=== PATIENT | male | born 1945 | race Caucasian/White ===

== ENCOUNTER 2018-03-30 10:34 | Inpatient (IN) | payer MEDICARE, OTHER ==
[~2018-03-30] VITALS: Ht 182.9 cm; Wt 91.2 kg
[~2018-03-30 10:34] MED LIST: ACET325T12 PO; ALPR0.25 PO; AMLO2.5T2 PO; Buspirone Hcl PO; DOCU-123 PO; Donepezil Hcl PO; ESCI10TA10 PO; HYDR25TA9 PO; LEVO50TA PO; ONDA2VIA3; PANT40TA3 PO; POTA20TA91 PO; PRAV20TA PO; Trazodone Hcl PO
[2018-03-30 10:50] VITALS: BP 139/84
--- NOTE | 2018-03-30 11:14 | NUR ---
Admit Pt transported onto unit via wheelchair. No distress noted, no combative or threatening behaviors @ this time. Pt is able to follow simple commands. Alert and oriented to self. VS WNL, denies pain @ this time.
[2018-03-30] MEDS ORDERED: ATIVAN IM PRN (11:30)
[2018-03-30] MEDS ORDERED: HALDOL IM PRN (11:30)
[2018-03-30] MEDS ORDERED: ALPR0.5T6 PO (11:48)
[2018-03-30] MEDS ORDERED: ESCI20TA10 PO (11:48)
[2018-03-30] MEDS ORDERED: BUSP5TAB2 PO (11:48)
[2018-03-30] MEDS ORDERED: TRAZ50TA18 PO (11:48)
[2018-03-30] MEDS ORDERED: RISP0.5T24 PO (11:48)
--- NOTE | 2018-03-30 11:50 | NUR ---
VSEE Pt was seen by Dr. Rivera via telemed, new medication orders received @ this time, see EMAR.
[2018-03-30] MEDS ORDERED: ONDA4TAB10 PO (12:24)
[2018-03-30] MEDS ORDERED: CYAN10002 IJ (12:24)
[2018-03-30] MEDS ORDERED: MOME17SP (12:24)
[2018-03-30] MEDS ORDERED: DOCU-123 PO (12:24)
[2018-03-30] MEDS ORDERED: LOPE2CAP94 PO (12:24)
[2018-03-30] MEDS ORDERED: LORA10TA75 PO (12:24)
[2018-03-30] MEDS ORDERED: OMEG1CAP2 PO (12:24)
[2018-03-30] MEDS ORDERED: TYLENOL PO PRN (12:30)
--- NOTE | 2018-03-30 12:52 | PSYCH ---
DATE OF SERVICE: 03/30/2018 INITIAL PSYCHIATRIC ADMISSION NOTE DATE OF ADMISSION: 03/30/2018 DATE OF SERVICE: 03/30/2018 CHIEF COMPLAINT: The patient was brought from [facility] on [facility]. HISTORY OF PRESENT ILLNESS: Delia Reyes is a 73-year-old male with a history of Alzheimer's type dementia, bipolar disorder, generalized anxiety and insomnia. The patient has been followed by Dr. Snell and Stanislaw in the past via tele medicine over the past 2 years. The patient was admitted to the [facility] in 07/2014. He does struggle with confusion. He has shown a decrease in his cognitive functioning over the past week. He does have increased aggressive and irritable behavior recently. He did have a fall yesterday where he was not injured. The patient had a medical workup done at the [facility] and everything was normal. The patient did get an involuntary paperwork to be core committed to the [facility]. The staff felt like he was a threat to harming other residents due to his increased aggressive behavior. The patient was a poor historian, when seeing Dr. Rivera. He was lying in bed comfortably. He was able to state his name. He was disoriented to place, time and situation. He was not able to describe his mood very well. He appeared in a normal mood. He was in no distress. He denied suicidal or homicidal ideation. He has a disorganized thought process and does not always answer questions asked to him. He does have a history of mood swings. He has a history of anger and irritability. He has a history of delusional thinking. He was not having auditory or visual hallucinations. He was not having manic or hypomanic behavior. He has an anxiety level that has been up and down. He has been treated with Xanax in the past, not medications tended to make him over sedated. The patient was not able to give any other reliable history at this time. He has extremely poor concentration level. Once again, he is a very poor historian. PAST PSYCHIATRIC HISTORY: The patient has been to the [facility] in 2013. He has been diagnosed with bipolar disorder, Alzheimer type dementia, generalized anxiety disorder. He has been on multiple psychotropic medications in the past including BuSpar, Wellbutrin-XL and Aricept. He did have his Aricept discontinued in 01/2018. He had his Wellbutrin-XL discontinued in 12/2017. He is not able to give any other history himself today. PAST MEDICAL HISTORY: 1. Hypertension. 2. Gastroesophageal reflux disease. 3. Hypothyroidism. 4. Alzheimer type dementia. 5. Primary insomnia. ALLERGIES: The patient has no known drug allergies. CURRENT PSYCHOTROPIC MEDICATIONS: 1. Lexapro 20 mg p.o. daily. 2. Trazodone 75 mg p.o. at bedtime. 3. Xanax 0.5 mg p.o. b.i.d. and Xanax 0.5 mg p.o. q. 4 hours p.r.n. anxiety. It was recently discontinued due to it making him tired. 4. BuSpar 5 mg p.o. t.i.d. 5. Risperdal 0.5 mg p.o. b.i.d. GENERAL HEALTH MEDICATIONS: Please refer to the medical chart. FAMILY PSYCHIATRIC HISTORY: None reported at this time. SOCIAL HISTORY: The patient lives at the [facility]. He has lived there since 07/2014. He is and has a that visits him daily. He has 3 children and 3 grandchildren. 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 He was not able to give any other reliable social history at this time. OBJECTIVE VITAL SIGNS: Temperature is 97.9, pulse is 82, respirations are 18, O2 sat is 94% on room air, blood pressure is 139/84. The patient was lying comfortably in bed, in no distress when seeing Dr. Rivera. REVIEW OF SYSTEMS: CONSTITUTIONAL: No recent changes in weight. No fatigue. NEUROLOGICAL: No tremors. No weakness. No dizziness. No headaches. The patient is at falls risk and had a fall yesterday. PSYCHIATRIC: Positive for depression. Positive for anxiety. Positive for delusions. Positive for increased aggressive behavior. No hallucinations. No divya. GASTROINTESTINAL: No diarrhea, no constipation. No nausea, no vomiting reported. MUSCULOSKELETAL: No abnormal muscle movements. CARDIOVASCULAR: No chest pain or chest palpitations reported. RESPIRATORY: No shortness of breath. No wheezing or coughing. GENITOURINARY: No problems urinating. He does have some incontinence. EYES: No recent changes in vision. EARS: No recent changes in hearing. EXTREMITIES: No swelling or edema. SKIN: No problems reported. Review of systems is otherwise negative and reviewed by Dr. Rivera. MENTAL STATUS EXAMINATION: MOOD AND AFFECT: Mood is reported as okay. Affect is euthymic. He does have a history of a labile affect. MUSCLE STRENGTH AND TONE: Within normal limits and no recent changes. GAIT AND STATION: The patient is ataxic and had a fall yesterday. APPEARANCE: Well-groomed and good hygiene. Appears stated age. Lying comfortably in bed. ATTITUDE AND BEHAVIOR: Uncooperative. Poor eye contact. ORIENTATION: Disoriented to place, time and situation. ATTENTION/CONCENTRATION: Poor attention and poor concentration. SPEECH: Slow rate and low volume. JUDGMENT/INSIGHT: Poor judgment and poor insight. THOUGHT PROCESS: Disorganized. LANGUAGE: German. THOUGHT CONTENT: Positive for delusional thinking. No suicidal or homicidal thoughts. No paranoia. FUND OF KNOWLEDGE: Poor. ASSOCIATIONS: Loose associations. MEMORY: Recent and remote memory are both impaired. STRENGTHS: Good physical health. Good social support from family. WEAKNESSES: Chronic mental health issues. Poor judgment and poor insight. ASSESSMENT: Bipolar disorder; Alzheimer type dementia with behavior disturbance; generalized anxiety disorder; insomnia. ESTIMATED LENGTH OF STAY: Two weeks. TREATMENT PLAN: 1. The patient will be an involuntary admission to the Behavioral Health Unit at [facility]. The patient will be monitored closely for behaviors. The patient will be placed on 1:1 monitoring for at least the first 24 hours to observe his behaviors. 2. The patient will be started on Haldol 2 mg p.o. or IM q. 6 hours p.r.n. delusions. The patient will be started on Ativan 0.5 mg p.o. or IM q. 6 hours p.r.n. anxiety. The patient will be started on Risperdal 0.5 mg p.o. b.i.d. This medication was started yesterday by Dr. Dover. The patient will continue Lexapro 20 mg p.o. daily and trazodone 75 mg p.o. at bedtime. The patient will also continue BuSpar 5 mg p.o. t.i.d. 3. The patient will see the general medical doctor for general medical issues. The patient will be encouraged to participate in all groups and activities that he is able to do. Benja Rivera IV MD DR: Thalia JOB# [id number]
[2018-03-30] MEDS ORDERED: IMODIUM PO PRN (13:00)
[2018-03-30] MEDS ORDERED: ZOFRAN ODT PO PRN (13:00)
[2018-03-30] MEDS: CYANOCOBALAMIN IM SCH (14:28)
[2018-03-30] MEDS: BUSPAR PO SCH ×2 (16:08→20:14)
[2018-03-30] MEDS ORDERED: BUSPAR ONE ×2 (17:20→20:08)
[2018-03-30] MEDS: LOVAZA PO SCH (17:25)
[2018-03-30 20:00] VITALS: BP 164/98
[2018-03-30] MEDS: COLACE PO SCH (20:13)
[2018-03-30] MEDS: DESYREL PO SCH (20:13)
[2018-03-30] MEDS: RISPERDAL PO SCH (20:13)
[2018-03-30] MEDS: KLOR-CON 10 PO SCH ×2 (20:13→20:24)
[2018-03-30] MEDS: LIPITOR PO SCH (20:14)
[2018-03-30] MEDS: ATIVAN PO PRN (20:21)
--- NOTE | 2018-03-30 20:21 | NUR ---
medications Patient anxious, wants to leave, continues to ask who is taking him back to [place], verbally aggressive at times, ativan 0.5mg given at this time per prn orders, RN notified
--- NOTE | 2018-03-30 21:24 | NUR ---
medications No adverse reactions noted at this time to ID of ativan
--- NOTE | 2018-03-31 05:21 | NUR ---
PIRP P- BEHAVIORAL DISTURBANCE AND FALL RISK I- PROVIDE MEDICATION ORDERED,1:1 WITH STAFF,PROVIDE SAFE AND SUPPORTIVE ENVIRONMENT R- PT. WAS ORIENTED TO NAME NOT MONTH OR YEAR. WHEN ASKED PT. IF HE WAS DEPRESSED HE SAID NO JUST MAD BECAUSE I NEED OUT OF HERE SO I CAN GO TO [place].HE REPEATEDLY DEMANDED TO GO . EXHIBITED ANXIETY PT. WAS ASSISTED WITH BR AND BRIEN CARE THIS SHIFT AND REQUIRES TWO STAFF FOR ASSIST AT TIMES. HE REMAINS A FALL RISK AND IS WEARING YELLOW NON SKID SOCKS. HE HAS VERY UNSTEADY GAIT AND ONLY WALKS WITH STAFF ASSIST FOR SHORT DISTANCES. PT. IS NOT REDIRECTABLE AT TIMES. EXHIBITS CONFUSION AND DELUSIONS. MEDICATION EDUCATION PROVIDED BUT PT. DID NOT EXPRESS UNDERSTANDING. TOOK MEDICATION ORDERED. REMAINS 1:1 WITH STAFF AT ALL TIMES. P- WILL CONTINUE WITH CURRENT TX. PLAN.
[2018-03-31] MEDS ORDERED: SYNTHROID ONE (05:26)
[2018-03-31] MEDS: SYNTHROID PO SCH (06:30)
[2018-03-31 07:51] VITALS: BP 164/96
[2018-03-31] MEDS ORDERED: BUSPAR ONE ×3 (08:57→20:05)
[2018-03-31] MEDS: LOVAZA PO SCH ×2 (09:00→15:54)
[2018-03-31] MEDS: CLARITIN PO SCH (09:00)
[2018-03-31] MEDS: KLOR-CON 10 PO SCH ×2 (09:00→20:10)
[2018-03-31] MEDS: RISPERDAL PO SCH ×2 (09:00→20:10)
[2018-03-31] MEDS: CELEXA PO SCH (09:00)
[2018-03-31] MEDS: HYDROCHLOROTHIAZIDE PO SCH (09:00)
[2018-03-31] MEDS: FLONASE NS SCH (09:00)
[2018-03-31] MEDS: PROTONIX PO SCH (09:00)
[2018-03-31] MEDS: BUSPAR PO SCH ×3 (09:00→20:10)
[2018-03-31] MEDS: CYANOCOBALAMIN IM SCH (09:01)
--- NOTE | 2018-03-31 09:56 | PRM.PN ---
Mood: UP AND DOWN, ON 1:1 FOR BEHAVIORAL PROBLEMS Sleep: SLEPT 6.75 HOURS LAST NIGHT Appetite: NORMAL APPETITE, NEEDS HELP WITH FEEDING, MEDS ARE CRUSHED Suidical thoughts: NONE REPORTED Homicidal thoughts: NONE REPORTED Recent stressors: STRESS OF MENTAL ILLNESS Family support: YES Aggressive Behavior: PROBLEMS WITH AGGRESSIVE BEHAVIOR Ability to Perform ADL'sc: NEEDS ASSISTANCE Psychotic sympstoms: DELUSIONAL THINKING, PARANOIA, RESTLESSNESS Manic Symptoms: MOOD SWINGS, REQUIRES CONSTANT REDIRECTION Living situation: WAS LIVING AT [facility] Illicit Drug usec: NONE REPORTED Alcoholo use: NONE REPORTED Tobacco use: NONE REPORTED Anxity Symptoms: HIGH ANXIETY LEVEL, RECEIVED PRN ATIVAN LAST NIGHT Anger/Irritablility: PROBLEMS WITH ANGER AND IRRITABILITY Muscle Strength & Tone: WNL Gait & Station: Ataxic Appearance: Well groomed/hygience, Casual attire, Normal weight, Appears age stated Attitude & Behaviour: Uncooperative, Poor eye contact, Psychomotor agitation Mood & Affect: Iabile, Angry, Depressed Orientation: Disoriented to place, Disoriented to time, Disoriented to situation Attention/Concentration: Poor attention, Poor concentration Speech: Impaired Judgement/Insight: Poor judgement, Poor insight Thought Process: Loose, Tangential Language: Hungarian Thought content/Abnormal/Psych: Delusions Fund of Knowledge: Other Associations: RAND Memory (recent and remote): Recent memory repaired, Remote memory repaired Constitutional: None Neurological: Weakness Psychiatric: Depressed, Anxious, Psychosis [place] I: DELUSIONAL DISORDER, PSYCHOSIS, DEPRESSION, DEMENTIA, ANXIETY [place] II: DEFERRED [place] III: REFER TO PMH/MEDICAL CHART [place] IV: STRESS OF MENTAL ILLNESS [place] V: GAF=25 Assessment/Plan Assessment/Plan Assessment/Plan Vital Signs Date Time Temp Pulse Resp B/P (MAP) Pulse Ox O2 Delivery O2 Flow Rate FiO2 03/31/18 09:00 164/96 03/31/18 07:51 97.8 81 16 95 Room Air Allergies Coded Allergies No Known Drug Allergies (Unverified Allergy, Unknown, 07/14/14) I & O 03/30/18 11:24 Thru 03/31/18 07:30 Intake Total 1532 ml Balance 1532 ml Current Medications Medications (Trade) Dose Ordered Sig/Karley Route Start Time Stop Time Status Last Admin Dose Admin Lorazepam (Ativan) 0.5 mg Q6HR PRN PO 03/30/18 11:30 04/29/18 11:29 03/30/18 20:21 0.5 MG Hydrochlorothiazide (Hydrochlorothiazide) 25 mg DAILY PO 03/31/18 09:00 04/30/18 08:59 03/31/18 09:00 25 MG Pantoprazole Sodium (Protonix) 40 mg DAILY PO 03/31/18 09:00 04/30/18 08:59 03/31/18 09:00 40 MG Atorvastatin Calcium (Lipitor) 10 mg HS PO 03/30/18 21:00 04/29/18 20:59 03/30/18 20:14 10 MG Docusate Sodium (Colace) 100 mg HS PO 03/30/18 21:00 04/29/18 20:59 03/30/18 20:13 100 MG Loratadine (Claritin) 10 mg DAILY PO 03/31/18 09:00 04/30/18 08:59 03/31/18 09:00 10 MG Rgbha-5-Lqpx Ethyl Esters (Lovaza) 1 gm BIDM PO 03/30/18 17:00 04/29/18 16:59 03/31/18 09:00 1 GM Potassium Chloride (Klor-Con 10) 20 meq BID PO 03/30/18 21:00 04/29/18 20:59 03/31/18 09:00 20 MEQ Trazodone HCl (Desyrel) 75 mg HS PO 03/30/18 21:00 04/29/18 20:59 03/30/18 20:13 75 MG Citalopram Hydrobromide (Celexa) 40 mg DAILY PO 03/31/18 09:00 04/30/18 08:59 03/31/18 09:00 40 MG Risperidone (Risperdal) 0.5 mg BID PO 03/30/18 21:00 04/29/18 20:59 03/31/18 09:00 0.5 MG Buspirone HCl (Buspar) 5 mg TID PO 03/30/18 16:08 04/29/18 16:07 03/31/18 09:00 5 MG THE PATIENT WAS SEEN BY DR. RICHARDS VIA TELEMEDICINE EQUIPMENT (VSEE) ALONG WITH THE TREATMENT TEAM. THE PATIENT STRUGGLES WITH CONFUSION. THE PATIENT IS ON 1:1 MONITORING FOR AGGRESSIVE BEHAVIOR. HE REQUIRES CONSTANT REDIRECTION. THE PATIENT HAS A DISORGANIZED THOUGHT PROCESS. THE PATIENT DENIES PHYSICAL PAIN. THE PATIENT NEEDS HELP WITH HIS ADLS. THE PATIENT IS IN A WHEEL CHAIR. THE PATIENT IS A POOR HISTORIAN. THE PATIENT IS NOT CURRENTLY MANIC OR HYPOMANIC. THE PATIENT DENIES SI OR HI. THE PATIENT HAS DELUSIONAL THINKING. THE PATIENT HAS AGGRESSIVE BEHAVIOR. THE PATIENT HAS BEEN A THREAT TO HARMING OTHERS AT THE CUSTODIAL. ASSESSMENT: DELUSIONAL DISORDER; DEMENTIA WITH BEHAVIOR PROBLEMS, MAJOR DEPRESSIVE DISORDER, GENERALIZED ANXIETY DISORDER PLAN: 1) CONTINUE BEHAVIORAL HEALTH MANAGEMENT. 2) INCREASE RISPERDAL TO 0.75MG PO BID. CONTINUE OTHER MEDICATIONS AT CURRENT DOSES. THE STAFF WERE AGREEABLE WITH THE PLAN. 16 MINUTES SPENT IN SUPPORTIVE THERAPY AND INSIGHT ORIENTED THERAPY. Problems: (1) Delusional disorder Status: Acute ICD Code: F22 - Delusional disorders SNOMED: 18427046 (2) Depressive disorder Status: Acute ICD Code: F32.9 - Depressive disorder SNOMED: 40094468 (3) Anxiety state Status: Acute ICD Code: F41.1 - Anxiety state SNOMED: 461734074 Patient History: Alzheimer's disease Asthma G8 BROTHER Congestive heart failure G8 BROTHER Hypertension G8 BROTHER No Family History of: Cerebrovascular disorder Chronic obstructive pulmonary disease Diabetes insipidus Diabetes mellitus Parkinson's disease SUKHI RICHARDS IV, MD Mar 31, 2018 09:56
[2018-03-31 10:58] LABS: BILIRUBIN,URINE NEGATIVE (NEGATIVE); UROBILINOGEN,URINE NORMAL (NEGATIVE)
[2018-03-31 10:59] LABS: APPEARANCE,URINE CLEAR (CLEAR); UA COLOR YELLOW (YELLOW)
--- NOTE | 2018-03-31 15:15 | NUR ---
MANAGER COUNCIL PARAS GASPAR MANAGER COUNCIL PARAS GASPAR AT BEDSIDE. PT ORIENTED TO NAME ONLY. UNABLE TO ANSWER QUESTIONS FOR MR. WILCOXDALE AT THIS TIME.
[2018-03-31] MEDS: ATIVAN PO PRN ×2 (15:58→20:09)
--- NOTE | 2018-03-31 16:00 | NUR ---
BEHAVIOR PT IN THE DAY ROOM WITH STAFF MEMBERS. PT KEPT WANTING TO GET UP, KEPT WANTING TO GO TO BED. UNABLE TO BE REDIRECTED BY STAFF. GAIT BELT IN PLACE TO ASSIST WITH PT WHEN HE WAS STANDING. PT WAS STANDING AND TRYING TO STRIKE OUT AT STAFF. YELLING AT STAFF. PT VERY UNSTEADY ON FEET. ABLE TO GET APPLESAUCE AND SOME DRINK DOWN PT. PT BEGAN BEHAVIOR ALL OVER AGAIN. UNABLE TO BE REDIRECTED BY STAFF. DIRECTED BY RN TO GIVE ATIVAN TO PT. ATIVAN 0.5MG PO GIVEN TO PT AT THIS TIME. PT DID TAKE THIS MED MIXED IN SOME PUDDING. PT TAKEN TO ROOM AND ASSISTED INTO BED, STAFF REMAINS AT BEDSIDE DUE TO PT BEING 1:1
--- NOTE | 2018-03-31 17:04 | NUR ---
MMSE DONE ON PAPER: PT REFUSED TO PARTICIPATE IN EXAM AND AT THIS TIME IS NOT ABLE TO COGNITIVELY PARTICIPATE IN EXAM. *LATE ENTRY*
--- NOTE | 2018-03-31 17:23 | NUR ---
PIRP P- BEHAVIORAL DISTURBANCE AND FALL RISK I- PROVIDE MEDICATION ORDERED,1:1 WITH STAFF,PROVIDE SAFE AND SUPPORTIVE ENVIRONMENT R- PT ORIENTED TO NAME ONLY. PT NOT COOPERATIVE WHEN ASKED QUESTIONS ABOUT ANXIETY AND DEPRESSION. PT STATED, "WHY DO YOU NEED TO KNOW ALL THAT?" THEN WOULD NOT ANSWER QUESTIONS. EXHIBITED ANXIETY. PT BECAME COMBATIVE AND SWUNG AT STAFF WITH ASSISTANCE X3 PATIENT WAS ABLE TO BE REDIRECTED TO SET IN WHEELCHAIR AND LISTEN TO [facility] MUSIC. AT 1600 PT BECAME AGGRESSIVE AND COMBATIVE AGAIN. ATTEMPTED REDIRECTION AND TALKING WITH PAT. PT BECAME MORE COMBATIVE. PRN ATIVAN GIVEN. PT STATED, "THIS IS ROJELIO YALL DO WHAT YALL WANT AND LET ME JUST GO LAY DOWN IN MY BED." AFTER RESTING PT WENT TO RESTROOM WITH ASSIST X3 WAS COOPERATIVE AND PLEASANT. HE CONTINUES TO BE UNSTEADY AND BE A FALL RISK AND IS WEARING YELLOW NON SKID SOCKS. 1:1 STAFF CONTINUES AT ALL TIMES FOR PT SAFETY. EXHIBITS CONFUSION AND DELUSIONS. MEDICATION EDUCATION PROVIDED BUT PT. DID NOT EXPRESS UNDERSTANDING. TOOK MEDICATION ORDERED. P- WILL CONTINUE TO ENCOURAGE PARTICIPATION IN GROUPS AND REDIRECT NEEDED WHEN BEHAVIORS ARRIVES.
--- NOTE | 2018-03-31 19:09 | NUR ---
medications Synthroid 0.5mg given this am at 0630, was not marked on EMR
[2018-03-31 19:30] VITALS: BP 145/79
[2018-03-31] MEDS: DESYREL PO SCH (20:09)
[2018-03-31] MEDS: LIPITOR PO SCH (20:09)
[2018-03-31] MEDS: COLACE PO SCH (20:10)
--- NOTE | 2018-03-31 20:17 | NUR ---
medications Patient aggitated,anxious, unable to redirect at times, attemps to get up by self, patient very unsteady, ativan0.5mg po given RN notified
--- NOTE | 2018-04-01 04:33 | NUR ---
PIRP P-BEHAVIORAL DISTURBANCES, RISK FOR FALLS I- 1:1 MONITORING, GIVE MEDICATION ORDERED. MONITOR BEHAVIOR FOR NEED FOR PRN MEDICATION. PROVIDE SUPPORTIVE ENVIRONMENT AND RE-DIRECTION WHEN NEEDED. R-PT BECAME VERY AGGRESSIVE WHEN ATTEMPTING TO HELP HIM GET INTO BED. IT TOOK SEVERAL MINUTES BEFORE PATIENT WAS ABLE TO BE RE-DIRECTED TO CALM DOWN. PT RAMBLED INCOHERENTLY WHEN ASKED IF HE WAS DEPRESSED OR HAD ANXIETY. P-CONTINUE WITH PLAN OF CARE.
[2018-04-01] MEDS: SYNTHROID PO SCH (05:32)
[2018-04-01 07:48] VITALS: BP 157/94
[2018-04-01] MEDS: FLONASE NS SCH (09:00)
[2018-04-01] MEDS ORDERED: BUSPAR ONE ×3 (09:04→20:42)
[2018-04-01] MEDS: KLOR-CON 10 PO SCH ×2 (09:07→20:42)
[2018-04-01] MEDS: CLARITIN PO SCH (09:07)
[2018-04-01] MEDS: RISPERDAL PO SCH ×2 (09:07→20:40)
[2018-04-01] MEDS: LOVAZA PO SCH ×2 (09:07→17:00)
[2018-04-01] MEDS: PROTONIX PO SCH (09:07)
[2018-04-01] MEDS: CELEXA PO SCH (09:07)
[2018-04-01] MEDS: HYDROCHLOROTHIAZIDE PO SCH (09:08)
[2018-04-01] MEDS: BUSPAR PO SCH ×3 (09:08→20:44)
--- NOTE | 2018-04-01 13:40 | NUR ---
Behavior This RN was sitting with pts in day room speaking to another pt, when Mr. Reyes began thrashing arms and legs suddenly then stopped. When this RN asked pt why he did that, pt stated, "Good, maybe now you'll listen to me." Pt was educated on appropriate behaviors, boundaries. Unable to comprehend d/t cognition. Requires verbal redirection, with clear and simple instructions. Did not exhibit threatening or combative behaviors @ this time.
--- NOTE | 2018-04-01 14:54 | NUR ---
Forefront Pt refused to speak to Dr. Rivera via telemed, would not answer questions. No new orders received @ this time.
--- NOTE | 2018-04-01 15:12 | NUR ---
Behavior Pt was being assisted to bathroom x2 staff, became agitated and attempted to hit staff d/t not wanting to sit down on toilet. Pt was assisted to sit in w/c, when pt sat down, pt stated, "I need to go to the bathroom." Pt was informed of attempt to toilet pt, pt then stated, "Well then I guess I'll just pee right here." This RN was able to redirect pt with verbalization, continued to establish appropriate boundaries and reinforce appropriate behaviors. Cooperative with second toileting attempt. Voided clear, yellow urine.
--- NOTE | 2018-04-01 15:21 | PRM.PN ---
Mood: UP AND DOWN, POOR HISTORIAN Sleep: SLEPT 5.25 HOURS LAST NIGHT, HE TAKES DAY TIME NAPS Appetite: NORMAL APPETITE, HE NEEDS HELP WITH HIS EATING. Suidical thoughts: NONE REPORTED Homicidal thoughts: NONE REPORTED Recent stressors: STRESS OF MENTAL ILLNESS, STRESS OF CONFUSION Family support: GOOD FAMILY SUPPORT Aggressive Behavior: HE HAS AGGRESSIVE BEHAVIOR YESTERDAY, HE REQUIRED 2 PRNS YESTERDAY. Ability to Perform ADL'sc: NEEDS A LOT OF ASSISTANCE Psychotic sympstoms: DELUSIONAL THINKING RELATED TO SEVERE DEMENTIA Manic Symptoms: MOOD SWINGS Living situation: LIVES AT [facility] Illicit Drug usec: NONE REPORTED Alcoholo use: NONE REPORTED Tobacco use: NONE REPORTED Anxity Symptoms: MODERATE TO HIGH ANXIETY LEVEL Anger/Irritablility: PROBLEMS WITH ANGER AND IRRITABILITY, ON 1:1 MONITORING Muscle Strength & Tone: WNL Gait & Station: Ataxic Appearance: Appears older, Well groomed/hygience, Casual attire, Normal weight Attitude & Behaviour: Uncooperative, Poor eye contact, Psychomotor agitation Mood & Affect: Iabile, Angry, Depressed Orientation: Disoriented to place, Disoriented to time, Disoriented to situation Attention/Concentration: Poor attention, Poor concentration Speech: Impaired Judgement/Insight: Poor judgement, Poor insight Thought Process: Loose, Tangential Language: Other Thought content/Abnormal/Psych: Delusions Fund of Knowledge: Other Associations: RAND Memory (recent and remote): Recent memory repaired, Remote memory repaired Constitutional: None Neurological: None Psychiatric: Depressed, Anxious, Psychosis [place] I: DELUSIONAL DISORDER, DEMENTIA WITH BEHAVIOR PROBLEMS, ANXIETY [place] II: DEFERRED [place] III: REFER TO PMH/MEDICAL CHART [place] IV: STRESS OF MENTAL ILLNESS [place] V: GAF=25 Assessment/Plan Assessment/Plan Assessment/Plan Vital Signs Date Time Temp Pulse Resp B/P (MAP) Pulse Ox O2 Delivery O2 Flow Rate FiO2 04/01/18 09:08 157/94 04/01/18 07:48 98.6 94 18 95 Room Air Allergies Coded Allergies No Known Drug Allergies (Unverified Allergy, Unknown, 07/14/14) I & O 03/30/18 11:24 Thru 04/01/18 12:42 Intake Total 3226 ml Balance 3226 ml Current Medications Medications (Trade) Dose Ordered Sig/Karley Route Start Time Stop Time Status Last Admin Dose Admin Risperidone (Risperdal) 0.75 mg BID PO 03/31/18 21:00 04/30/18 20:59 04/01/18 09:07 0.75 MG THE PATIENT WAS SEEN BY DR. RICHARDS VIA TELEMEDICINE EQUIPMENT (SUPPORTED BY [facility]) ALONG WITH THE TREATMENT TEAM. THE PATIENT WAS SITTING COMFORTABLY IN HIS CHAIR. THE PATIENT DID NOT WANT TO ANSWER QUESTIONS. HE HAS HAD PROBLEMS WITH ANGER AND IRRITABILITY. THE PATIENT IS ON 1:1 MONITORING FOR AGGRESSIVE BEHAVIOR. THE PATIENT HAS A MODERATE TO HIGH ANXIETY LEVEL. THE PATIENT IS NOT HAVING AUDITORY OR VISUAL HALLUCINATIONS. ASSESSMENT: DELUSIONAL DISORDER, GENERALIZED ANXIETY DISORDER; MAJOR DEPRESSIVE DISORDER; DEMENTIA WITH BEHAVIOR PROBLEMS PLAN: 1) CONTINUE BEHAVIORAL HEALTH MANAGEMENT. 2) CONTINUE CURRENT MEDICATIONS. STAFF AGREEABLE WITH THE PLAN. SUPPORTIVE THERAPY GIVEN. CONTINUE 1:1 MONITORING. THE PATIENT DENIES SI OR HI. 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
--- NOTE | 2018-04-01 17:12 | NUR ---
PIRP P: Dementia, agitation, impulsive I: Re-orient to surroundings, redirect with verbalization, give clear and simple instructions, 1:1 observation, teach relaxation techniques, assess for hallucinations and delusions, assist with differentiating between internal and external reality, provide safe and supportive environment, provide task-oriented activities, provide 1:1 to encourage expression of feelings, give medications as ordered R: Pt has had labile affect throughout shift, exhibits periods of tearfulness and anger, @ times cheerful. Has been able to redirect with verbalization and with 1:1 observation. Denies depression and anxiety, states, "Well, I'm not happy." When asked if having thoughts of hurting self, stated, "I wouldn't plan to hurt someone and I hope no one hurts me." Pt is unable to answer some questions appropriately, has difficulty following simple commands. Requires assistance with toileting and feedings. Attempts to ambulate without assist @ times, becomes irritable with redirection. Alert and oriented to self, restless @ times. P: Pt unable to verbalize plan, continue to use de-escalation techniques.
[2018-04-01 20:08] VITALS: BP 149/92
[2018-04-01] MEDS: COLACE PO SCH (20:40)
[2018-04-01] MEDS: LIPITOR PO SCH (20:41)
[2018-04-01] MEDS: DESYREL PO SCH (20:43)
--- NOTE | 2018-04-02 05:31 | NUR ---
PIRP- P- BEHAVIORAL DISTURBANCE AND FALL RISK I-PROVIDE SAFE AND SUPPORTIVE ENVIRONMENT,1:1 WITH STAFF.,PROVIDE MEDICATION ORDERED. R- PT. REMAINS 1:1 WITH STAFF AT ALL TIMES. ORIENTED TO NAME NOT MONTH OR YEAR. TOOK MEDICATION ORDERED.HAS RESTED IN BED WITH EYES CLOSED. REQUIRES TWO STAFF MEMBERS TO ASSIST PT. WITH AMBULATING OR TRANSFERS. P- WILL CONTINUE WITH CURRENT TX. PLAN.
[2018-04-02] MEDS: SYNTHROID PO SCH (06:05)
[2018-04-02] MEDS: LOVAZA PO SCH ×2 (08:00→17:00)
[2018-04-02 08:15] VITALS: BP 163/71
[2018-04-02] MEDS ORDERED: BUSPAR ONE ×2 (08:56→09:03)
[2018-04-02] MEDS: CLARITIN PO SCH (08:57)
[2018-04-02] MEDS: HYDROCHLOROTHIAZIDE PO SCH (08:57)
[2018-04-02] MEDS: RISPERDAL PO SCH ×2 (08:57→20:02)
[2018-04-02] MEDS: PROTONIX PO SCH (08:57)
[2018-04-02] MEDS: CELEXA PO SCH (08:57)
[2018-04-02] MEDS: KLOR-CON 10 PO SCH ×2 (08:58→20:03)
[2018-04-02] MEDS: BUSPAR PO SCH ×3 (08:58→20:02)
[2018-04-02] MEDS: FLONASE NS SCH (08:59)
--- NOTE | 2018-04-02 10:28 | PRM.PN ---
Mood: DEPRESSED, ANXIOUS Sleep: GOOD HE SLEPT 9.25 HOURS LAST NIGHT Appetite: LOW Suidical thoughts: DENIES AT THIS TIME Homicidal thoughts: DENIES AT THIS TIME Recent stressors: INPATIENT MENTAL ILLNESS TREATMENT Family support: GOOD FAMILY SUPPORT Aggressive Behavior: SOME AGGRESSION AT TIMES. HE SEEMS MORE RESTLESS RECENTLY Ability to Perform ADL'sc: REQUIRES ASSISTANCE Psychotic sympstoms: DELUSIONAL Manic Symptoms: MOOD SWINGS NOTED Living situation: [facility] Illicit Drug usec: NONE Alcoholo use: NONE Tobacco use: NONE Anxity Symptoms: VERY RESTLESS, CONSTANTLY SHIFTING AND IN MOTION Anger/Irritablility: CURRENTLY WITH 1:1 DUE TO ANGER AND IRRITABLITY Muscle Strength & Tone: WNL Gait & Station: Ataxic Appearance: Appears older, Well groomed/hygience, Normal weight Attitude & Behaviour: Poor eye contact, Psychomotor agitation Mood & Affect: Flat Orientation: Disoriented to place, Disoriented to situation Attention/Concentration: Poor attention, Poor concentration Speech: Impaired (Some speech is very difficult to understand. ) Judgement/Insight: Poor judgement, Poor insight Thought Process: Loose Language: Scottish Thought content/Abnormal/Psych: Delusions Fund of Knowledge: Other (Impaired, poor historian.) Associations: RAND Memory (recent and remote): Recent memory repaired, Remote memory repaired Constitutional: Fatigue Neurological: Weakness Psychiatric: Depressed, Anxious Pool I: DELUSIONAL DISORDER, DEMENTIA WITH BEHAVIOR PROBLEMS, ANXIETY Pool II: DEFERRED Pool III: REFER TO MEDICAL CHART Pool IV: STRESS OF MENTAL ILLNESS Pool V: GAF=25 Assessment/Plan Assessment/Plan Assessment/Plan Vital Signs Date Time Temp Pulse Resp B/P (MAP) Pulse Ox O2 Delivery O2 Flow Rate FiO2 04/02/18 08:57 163/71 04/02/18 08:15 97.6 97 18 97 Room Air Allergies Coded Allergies Type Severity Reaction Last Updated Verified No Known Drug Allergies Allergy Unknown 07/14/14 No Intake and Output 04/02/18 07:00 Intake Total 1214 ml Balance 1214 ml Intake Oral 1214 ml # Voids 7 # Bowel Movements 1 THE PATIENT WAS SEEN BY ASHLEY ALVARADO VIA TELEMEDICINE EQUIPMENT ([facility] ALONG WITH THE TREATMENT TEAM. THE PATIENT STRUGGLES WITH A DEPRESSED MOOD, ANXIETY, AND IMPAIRED MEMORY. HE IS CURRENTLY ON 1:1 SUPERVISION DUE TO AGGRESSIVE BEHAVIOR. HE HAS A MODERATE TO HIS ANXIETY LEVEL. HE DENIES ANY HALLUCINATION AND SI/HI AT THIS TIME. ASSESSMENT: DELUSIONAL DISORDER, GENERALIZED ANXIETY DISORDER; MAJOR DEPRESSIVE DISORDER; DEMENTIA WITH BEHAVIOR PROBLEMS PLAN: 1) CONTINUE BEHAVIORAL HEALTH MANAGEMENT 2) INCREASE BUSPIRONE TO 7.5MG 1 BY MOUTH THREE TIMES A DAY, CONTINUE ALL OTHER MEDICATIONS PRESCRIBED. STAFF AGREEABLE WITH THE PLAN. SUPPORTIVE THERAPY GIVEN. CONTINUE 1:1 MONITORING. THE PATIENT DENIES SI OR HI. 16 MINUTES OR GREATER SPENT DISCUSSING PLAN OF CARE, CHANGE OF MEDICATION AND EXPECTED OUTCOMES WITH PATIENT AND CARE TEAM. 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
--- NOTE | 2018-04-02 18:19 | NUR ---
PIRP P: Confusion, agitation, impulsiveness I: Monitor for changes in usual behaviors, 1:1 observation, give clear and simple instructions, redirect with verbalization, provide safe and supportive environment, assess for hallucinations and delusions, assist in differentiating between internal and external reality, provide task-oriented activities, provide 1:1 to encourage expression of feelings, provide reality orientation, give medications as ordered, teach relaxation techniques R: Pt has had labile affect throughout shift. Has exhibited combative, threatening behaviors. Has been able to redirect with 1:1 obs and verbalization. Does not participate in group activities, is withdrawn, restless, and impulsive. Eats meals with assist, was cooperative with shower. Alert and oriented to self, believes he is either in [place] or [place], [place]. P: Increase made to scheduled Buspar.
--- NOTE | 2018-04-02 18:37 | NUR ---
Behavior Pt requested to lay down in bed and was assisted to do so by staff, was refusing to lay in bed in appropriate position. Pt kicked @ staff and stated, "I'm going to do what I want and I want to lay here." Pt was half-way hanging off of bed, was attempted to reposition and became agitated. Pt began to bear down and was assisted to sit on floor, attempted to lay down on floor mat and refused. Pt now lying down on floor on left side, pillow placed under head for comfort. Multiple attempts have been made to assist pt back to bed, has refused to do so. Requested blanket, partially laying down on floor mat.
[2018-04-02 19:45] VITALS: BP 148/82
[2018-04-02] MEDS: DESYREL PO SCH (20:03)
[2018-04-02] MEDS: LIPITOR PO SCH (20:03)
[2018-04-02] MEDS: COLACE PO SCH (20:03)
--- NOTE | 2018-04-03 05:15 | NUR ---
PIRP- P- BEHAVIORAL DISTURBANCE AND FALL RISK. I- PROVIDE SAFE AND SUPPORTIVE ENVIRONMENT,1:1 WITH STAFF,PROVIDE MEDICATION ORDERED. R- PT. ORIENTED TO NAME ONLY. REMAINS 1:1 WITH STAFF AT ALL TIMES AND MOST OF THE TIME REQUIRES TWO STAFF WHEN AMBULATING OR ADLS AND TOILETING. PT. VERY UNSTEADY AND CAN ONLY WALK SHORT DISTANCES WITH STAFF BY HIS TO STEADY HIM. PT. HAS THREATENED STAFF TONIGHT STATING YOU TAKE CARE OF YOURSELF AND I WILL TAKE CARE OF ME. VERY HARD TO REDIRECT. P- WILL CONTINUE WITH CURRENT [place]. PLAN.
[2018-04-03] MEDS: SYNTHROID PO SCH (07:05)
[2018-04-03 08:02] VITALS: BP 179/118
[2018-04-03] MEDS: LOVAZA PO SCH ×2 (08:33→18:03)
[2018-04-03] MEDS: RISPERDAL PO SCH ×2 (08:33→20:01)
[2018-04-03] MEDS: CLARITIN PO SCH (08:34)
[2018-04-03] MEDS: BUSPAR PO SCH ×3 (08:35→20:02)
[2018-04-03] MEDS: CELEXA PO SCH (08:35)
[2018-04-03] MEDS: PROTONIX PO SCH (08:35)
[2018-04-03] MEDS: ATIVAN PO PRN (08:35)
[2018-04-03] MEDS: HYDROCHLOROTHIAZIDE PO SCH (08:47)
[2018-04-03] MEDS: KLOR-CON 10 PO SCH ×2 (08:47→20:02)
[2018-04-03] MEDS: FLONASE NS SCH (11:03)
--- NOTE | 2018-04-03 13:23 | NUR ---
BEHAVIOR PT BECOMING AGITATED AND COMBATIVE AT THIS TIME. HALDOL 2MG IM ADMINISTERED IN RIGHT DELTOID PER PRN ORDERS. PT COMBATIVE DURING IM ADMINISTRATION. UNABLE TO REDIRECT PT. PT VERBALLY ABUSIVE TO STAFF.
--- NOTE | 2018-04-03 15:32 | NUR ---
TELEMEDICINE DR ALVARADO ON TELEMED WITH PT NEW ORDER TO GIVE RISPERDONE 0.25 AT 1PM PO DAILY
--- NOTE | 2018-04-03 16:36 | PRM.PN ---
Mood: Depressed, marked confusion noted Sleep: Slept 7.25 hours last night. Appetite: Did not eat breakfast, he did eat lunch and 2 snacks. Suidical thoughts: Denies, nurse reports he said he wanted to shoot himseldf earlier. Homicidal thoughts: Denies Recent stressors: Mental health Family support: Strong Aggressive Behavior: Increased, it is noted that he is aggressive everyday around 1345. Ability to Perform ADL'sc: Assistance required Psychotic sympstoms: Delusions, he reports people are are going in and out of his room. 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 Anger/Irritablility: Two episodes today. Muscle Strength & Tone: WNL Gait & Station: Ataxic Appearance: Appears older, Well groomed/hygience, Normal weight Attitude & Behaviour: Poor eye contact, Psychomotor retardation Mood & Affect: Flat, Depressed Orientation: Disoriented to time Attention/Concentration: Poor attention, Poor concentration Speech: Impaired (slow and incomprehensible at times) Judgement/Insight: Poor judgement, Poor insight Thought Process: Loose Language: Mongolian Thought content/Abnormal/Psych: SI (per RN) Fund of Knowledge: Other (LImikted) Associations: RAND Memory (recent and remote): Recent memory repaired, Remote memory repaired Constitutional: Fatigue Neurological: Weakness Psychiatric: Depressed, Anxious, Psychosis [place] I: MAJOR DEPRESSIVE DISORDER, ANXIETY, DELUSIONAL DISORDER, DEMENTIA [place] II: DEFERRED [place] III: REFER TO MEDICAL CHART/PMH [place] IV: MEMORY/HEALTH [place] V: 35 Assessment/Plan Assessment/Plan Patient History: Alzheimer's disease Asthma G8 BROTHER Congestive heart failure G8 BROTHER Hypertension G8 BROTHER No Family History of: Cerebrovascular disorder Chronic obstructive pulmonary disease Diabetes insipidus Diabetes mellitus Parkinson's disease Plan Vital Signs Date Time Temp Pulse Resp B/P (MAP) Pulse Ox O2 Delivery O2 Flow Rate FiO2 04/03/18 08:47 167/101 04/03/18 08:02 98.0 82 18 96 Room Air 98.0 Allergies Coded Allergies Type Severity Reaction Last Updated Verified No Known Drug Allergies Allergy Unknown 07/14/14 No Intake and Output 04/03/18 07:00 Intake Total 840 ml Balance 840 ml Intake Oral 840 ml # Voids 4 # Bowel Movements 2 THE PATIENT WAS SEEN BY ASHLEY ALVARADO VIA TELEMEDICINE EQUIPMENT (SUPPORTED BY [facility]) ALONG WITH THE TREATMENT TEAM. HE HAS HAD AN INCREASED IN AGGRESSION, ANXIETY, AND CONFUSION. HE DENIES SI/HI. HE DOES NOT RECALL STATING HE WANTED TO SHOOT HIMSELF EARLIER TODAY. HE CONTINUES TO HAVE 1:1 SUPERVISION. HE HAS AGGRESSION AROUND 1345 DAILY, HE HAS 2 EPISODES TODAY AND THE TRIGGERS ARE UNKNOWN. ASSESSMENT: MAJOR DEPRESSIVE DISORDER, ANXIETY, DELUSIONAL DISORDER, DEMENTIA PLAN: 1. CONTINUE BEHAVIORAL HEALTH MANAGEMENT 2. ADD RISPERAL 0.25 AT 1300. CONTINUE ALL OTHER CURRENT MEDICATIONS PRESCRIBED. STAFF AGREEABLE WITH PLAN 3. ALL PATIENT QUESTIONS ANSWERED RELATED TO MEDICATIONS, PLAN OF CARE, AND EXPECTED OUTCOMES. 4. SAFETY PLAN DISCUSSED. ASHLEY ALVARADO NP Apr 03, 2018 16:36
--- NOTE | 2018-04-03 16:47 | NUR ---
PIRP P: Confusion, agitation, impulsiveness I: Monitor for changes in usual behaviors, 1:1 observation, give clear and simple instructions, redirect with verbalization, provide safe and supportive environment, assess for hallucinations and delusions, assist in differentiating between internal and external reality, provide task-oriented activities, provide 1:1 to encourage expression of feelings, provide reality orientation, give medications as ordered, teach relaxation techniques R: Pt has had labile affect throughout shift. Has exhibited combative, threatening behaviors. Has been able to redirect with 1:1 obs and verbalization. Does not participate in group activities, is withdrawn, restless, and impulsive. Eats meals with assist, was cooperative with shower. Alert and oriented to self. P: Increase made to scheduled Risperdone.
--- NOTE | 2018-04-03 16:51 | CNH ---
DATE OF CONSULTATION: 04/02/2018 REFERRING PHYSICIAN: Dr. Rivera with psychiatry. REASON FOR CONSULTATION: Medical management of multiple medical problems. HISTORY OF PRESENT ILLNESS: The patient is a 73-year-old man with a past medical history significant for hypertension, GERD, hypothyroidism, Alzheimer's dementia, peripheral vascular disease, and hyperlipidemia. He presented for admission to behavioral health unit with aggressive behavior. Much of history is from the chart. The patient is uncooperative with history and exam. For the most part exam was able to be accomplished with his assistance. PAST MEDICAL HISTORY: Includes hypertension, hyperlipidemia, hypothyroidism, GERD, peripheral vascular disease, dementia. PAST SURGICAL HISTORY: At this point is unknown. No recent surgeries. ALLERGIES: No known drug allergies. HOME MEDICATIONS: List provided includes Tylenol as needed, Xanax as needed, BuSpar 5 mg 3 times a day, vitamin B12 twice a month, Colace 100 mg at night, Lexapro 20 mg daily, hydrochlorothiazide 25 mg daily, levothyroxine 50 mcg daily, numerous other p.r.n. medications, Nasonex daily, Lovaza 1 gram b.i.d., Protonix 40 mg daily, potassium 20 mEq twice a day, pravastatin 20 mg at night, Risperdal 0.5 mg twice a day, trazodone 75 mg at night. SOCIAL HISTORY: Apparently was resident of residential. No known recent alcohol, tobacco or illicit drug use history. FAMILY HISTORY: Negative for early coronary artery disease or diabetes. REVIEW OF SYSTEMS: CARDIAC: He denies any chest pain, difficulty breathing. PULMONARY: No cough. GASTROINTESTINAL: No reported nausea, vomiting or diarrhea. All else negative in 10 point review of system except as in HPI although review of systems is somewhat limited due to his dementia. PHYSICAL EXAMINATION: VITAL SIGNS: Upon arrival, height 182.9 cm, weight 91.17 kilograms, temperature 97.9, pulse 82, respirations 18, blood pressure is 139/84, O2 saturation 94% on room air. GENERAL: He is alert, chronically ill-appearing gentleman. HEENT: Pupils equal, round, reactive to light. Sclerae are anicteric. Oropharynx, visualized portions clear. Mucous membranes are slightly dry. NECK: Supple, no lymphadenopathy. CARDIOVASCULAR: At time of exam was regular rate and rhythm with a mild systolic murmur right sternal border. LUNGS: Clear bilaterally with shallow inspiratory effort. ABDOMEN: Soft. Bowel sounds are present, nontender to palpation. EXTREMITIES: No cyanosis, clubbing. He does have evidence of xerosis on all extremities. He also has vascular changes consistent with collateral development likely due to peripheral vascular disease. NEUROLOGIC: Grossly nonfocal. LABORATORY DATA: UA, pH is 6.0, specific gravity is 1.020 and 500 mg/dL protein, all else is essentially negative. Labs from outside hospital: EKG shows chronic atrial fibrillation, rate controlled. Sodium 143, potassium 3.6, chloride 103, CO2 is 29, BUN 21, creatinine 1.3, glucose 104, AST 28, ALT 30, alkaline phosphatase 87, bilirubin 0.8, albumin is 4.3. TSH 3.07, hemoglobin A1c is 5.78. Urine drug screen is only positive for benzodiazepine. CBC: White count 6.3, hemoglobin 17.5, platelets 177. ASSESSMENT AND PLAN: The patient is a 73-year-old man here with dementia, behavior disturbance with hypertension, hyperlipidemia, hypothyroidism, GERD, peripheral vascular disease. 1. We will continue his cardiovascular medications at current dose. We will follow clinically. 2. Continue proton pump inhibitor. 3. We will recommend moisturizing cream for his extremities. 4. Continue the levothyroxine at current dose. He is clinically euthyroid. 5. Fall precautions. Time spent on 04/02/2018 is 45 minutes. Thank you very much for this consult. We will follow with you. Vinny Lynch MD DR: MELIZA/rao JOB# [id number] [place]
--- NOTE | 2018-04-03 18:42 | NUR ---
Medication Patient was administered IM on right deltoid 2mg of Haldol @1320. Patient was combative with staff, was not able to redirect, was trying to get out of wheel chair. JOE Jaimes was notified.
[2018-04-03 19:40] VITALS: BP 116/82
[2018-04-03] MEDS: DESYREL PO SCH (20:01)
[2018-04-03] MEDS: COLACE PO SCH (20:01)
[2018-04-03] MEDS: LIPITOR PO SCH (20:02)
--- NOTE | 2018-04-03 21:00 | NUR ---
BEHAVIORS PT. HAS BEEN IN DAY ROOM WITH STAFF 1:1 ,NOT REDIRECTABLE, DOES NOT FOLLOW DIRECTIONS AND TALKS WITH WORD [place]IDEA. WHEN STAFF IS TRYING TO ASSIST HIM HE TELLS STAFF TO LEAVE HIM ALONE AND GET AWAY RESISTING ASSIST. PT. IS UNSTEADY WHEN TRANSFERRING REQUIRING TWO STAFF ASSIST AND IS VERY UNSTEADY AND UNCOOPERATIVE. IN BR AT THIS TIME WITH NURSES ASSISTING WITH CARE.
--- NOTE | 2018-04-04 04:46 | NUR ---
PIRP- P- BEHAVIORS AND FALL RISK I- PROVIDED MEDICATION ORDERED,Q 15 MIN. MONITORING , PROVIDE 1:1 . PROVIDE SAFE AND SUPPORTIVE ENVIRONMENT. R- PT. GETS UP IN EARLY AM EACH MORNING AND IS ARGUMENTATIVE AND HARD TO REDIRECT. PT. TALKS ABOUT BEING IN [place] THEN CRIES FOR VERY SHORT WITH NO TEARS OBSERVED WHEN REDIRECTED. TOOK MEDICATION ORDERED. IS IN BED AWAKE AT THIS TIME. PT. HAS BEEN AWAKE SINCE EARLY AM AND CONTINUES TO EXHIBIT SAME BEHAVIORS. REMAINS FALL RISK AND IS WEARING YELLOW NON SKID SOCKS. P- WILL CONTINUE WITH CURRENT [place]. PLAN.
[2018-04-04] MEDS: SYNTHROID PO SCH (05:44)
--- NOTE | 2018-04-04 05:57 | NUR ---
BEHAVIORS PT. SITTING ON SIDE OF BED WANTING TO WALK TO [place] AND ARGUMENTATIVE AND HARD TO REDIRECT. PT. PICKS AT HIS SKIN FREQUENTLY.
[2018-04-04 08:12] VITALS: BP 167/116
--- NOTE | 2018-04-04 09:01 | NUR ---
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 PATIENT WITH FREQUENT NEED FROM STAFF TO REDIRECT HIM, USUALLY UNSUCCESSFUL. 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 ORIENTATED TO SELF ONLY.
[2018-04-04] MEDS: FLONASE NS SCH (09:15)
[2018-04-04] MEDS: CELEXA PO SCH (09:18)
[2018-04-04] MEDS: PROTONIX PO SCH (09:18)
[2018-04-04] MEDS: RISPERDAL PO SCH ×2 (09:18→20:19)
[2018-04-04] MEDS: HYDROCHLOROTHIAZIDE PO SCH (09:18)
[2018-04-04] MEDS: BUSPAR PO SCH ×3 (09:18→20:18)
[2018-04-04] MEDS: LOVAZA PO SCH ×2 (09:18→16:38)
[2018-04-04] MEDS: KLOR-CON 10 PO SCH ×2 (09:19→20:19)
[2018-04-04] MEDS: CLARITIN PO SCH (09:19)
--- NOTE | 2018-04-04 11:56 | PRM.PN ---
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 Anger/Irritablility: DENIES Muscle Strength & Tone: WNL Gait & Station: Ataxic Appearance: Casual attire, Normal weight Attitude & Behaviour: Cooperative/Pleasant Mood & Affect: Euthymic/appr/congruent Orientation: Disoriented to place, Disoriented to time Attention/Concentration: Fair attention, Fair concentration Speech: Reg rate/vol/rhyth/prosod Judgement/Insight: Fair judgement, Poor insight Thought Process: Loose Language: Hungarian Thought content/Abnormal/Psych: None/normal Fund of Knowledge: WNL Associations: RAND Memory (recent and remote): Recent memory repaired, Remote memory repaired Constitutional: None Neurological: None Psychiatric: None [place] I: DEPRESSIVE DISORDER, ANXIETY, DEMENTIA, DELUSIONAL DISORDER [place] II: DEFERRED [place] III: REFER TO MEDICAL CHART [place] IV: STRESS OF MENTAL ILLNESS [place] V: 40 Assessment/Plan Assessment/Plan Patient History: Alzheimer's disease Asthma G8 BROTHER Congestive heart failure G8 BROTHER Hypertension G8 BROTHER No Family History of: Cerebrovascular disorder Chronic obstructive pulmonary disease Diabetes insipidus Diabetes mellitus Parkinson's disease Plan Vital Signs Date Time Temp Pulse Resp B/P (MAP) Pulse Ox O2 Delivery O2 Flow Rate FiO2 04/04/18 12:10 165/97 (119) 04/04/18 08:12 98.4 90 16 98 Room Air 98.4 Allergies Coded Allergies Type Severity Reaction Last Updated Verified No Known Drug Allergies Allergy Unknown 07/14/14 No Intake and Output 04/04/18 07:00 Intake Total 1152 ml Balance 1152 ml Intake Oral 1152 ml # Voids 5 THE PATIENT WAS SEEN BY ASHLEY ALVARADO VIA TELEMEDICINE EQUIPMENT ([facility] ALONG WITH THE TREATMENT TEAM. ASSESSMENT: MAJOR DEPRESSIVE DISORDER, ANXIETY DISORDER, DEMENTIA, DELUSIONAL DISORDER PLAN: 1. CONTINUE BEHAVIORAL HEALTH MANAGEMENT 2. CONTINUE CURRENT MEDICATIONS PRESCRIBED. STAFF AGREEABLE WITH PLAN 3. ALL PATIENT QUESTIONS ANSWERED RELATED TO MEDICATIONS, PLAN OF CARE, AND EXPECTED OUTCOMES. 4. SAFETY PLAN DISCUSSED. ASHLEY ALVARADO NP Apr 04, 2018 11:56
[2018-04-04 12:10] VITALS: BP 165/97
[2018-04-04] MEDS ORDERED: RISPERDAL PO SCH (13:00)
--- NOTE | 2018-04-04 17:12 | NUR ---
PIRP P HIGH FALL RISK WITH BEHAVIORS I-PROVIDE SAFE AND SUPPORTIVE ENVIRONMENT. PROVIDE ONE ON ONE. MEDICATIONS TO BE GIVEN ORDERED. ONE ON ONE TO FEED PATIENT ALL MEALS AND SNACK D/T PATIENT UNABLE TO FEED SELF. R-PATIENT HAS HAD ONE ON ONE CARE TODAY. PATIENT HAS BEEN RESTLESS MOST OF THIS SHIFT. ATTEMPTS FREQUENTLY TO GET OUT OF WHEEL CHAIR AND RECLINER, REQUIRES VERY FREQUENT REDIRECTION. PATIENT RAMBLES A LOT. WITH VSEE TODAY HE DID ANSWER SOME OF HER QUESTIONS WITH LITTLE DIFFICULTY. AMBULATED PATIENT IN HALLWAY TODAY X 2 ASSIST, HE DID WELL. PATIENT HAS HAD NO AGGRESSIVE BEHAVIOR TODAY. P-PATIENT WAS SEEN VSEE WITH NURSE PRACTITIONER, NO CHANGES
[2018-04-04 19:30] VITALS: BP 158/108
[2018-04-04] MEDS: LIPITOR PO SCH (20:18)
[2018-04-04] MEDS: COLACE PO SCH (20:18)
[2018-04-04] MEDS: DESYREL PO SCH (20:19)
[2018-04-05] MEDS: ATIVAN PO PRN ×2 (00:32→14:48)
--- NOTE | 2018-04-05 00:42 | NUR ---
medications Patient restless, unable to redirect, unable to sleep, ativan 0.5mg po given per prn orders at this time, RN notified
--- NOTE | 2018-04-05 01:36 | NUR ---
BEHAVIORS PT. CONTINUES TO BE RESTLESS ,ANXIOUS, HARD TO REDIRECT AND REQUIRES VERY FREQUENT REDIRECTING. PT. SKIN IS DRY AND FLAKY AND PT. PICKS AT HIS SKIN.
[2018-04-05] MEDS: HALDOL PO PRN ×2 (02:31→13:37)
--- NOTE | 2018-04-05 02:34 | NUR ---
medications Pt aggitated, unable to redirect, delusional, Haldol 2mg po given per prn orders, RN notified
--- NOTE | 2018-04-05 04:59 | NUR ---
pirp- P- BEHAVIORAL AND FALL RISK I- PROVIDE SAFE AND SUPPORTIVE ENVIRONMENT,1:1 WITH STAFF,PROVIDE MEDICATION ORDERED. R- PT. HAS BEEN EXHIBITING HALLUCINATIONS,DELUSIONS AND IS NOT REDIRECTABLE. RAMBLING CONSTANTLY WITH [employer]. GRABBING FOR THINGS NOT THERE ,PICKING AT THINGS NOT THERE ON THE FLOOR. TALKING TO A MAN,NOT THERE, IN THE ROOM AND SAYS THE MAN IS TALKING TO HIM . STATES HE IS HEARING MUSIC. DEFIANT WITH REDIRECTION. REMAINS 1:1 AT ALL TIMES AND TWO STAFF REQUIRED FREQUENTLY.PT. HAS NOT SLEPT ANY TONIGHT.VERY HARD TO DIRECT WHEN ASSISTING PT. TO BR , BRIEN CARE AND AMBULATING SHORT DISTANCES. REMAINS HIGH FALL RISK AND IS WEARING YELLOW NON SKID SOCKS AND BED IN LOW POSITION. P- WILL CONTINUE WITH CURRENT TX. PLAN.
[2018-04-05] MEDS: SYNTHROID PO SCH (05:33)
[2018-04-05] MEDS ORDERED: ATIVAN ONE (06:25)
--- NOTE | 2018-04-05 06:25 | NUR ---
DR. NIKOLAS RICHARDS WAS NOTIFIED AND IT WAS REPORTED TO HIM A CONCERN OF A POSSIBLE REACTION TO MEDICATIONS AND THAT PT. 'S LEGS AND ARMS WERE SHAKING AND PT . EXHIBITING ANXIETY AND DELUSIONS .VERBAL ORDERS RECEIVED TO GIVE ATIVAN 1 MG PO 1 TIME ORDER,INCREASE TRAZODONE 75 MG TO 100 MG PO QHS,DC RISPERIDONE AT 1300 DAILY, INCREASE RISPERIDONE 0.75 BID PO TO 1 MG PO BID. Addendum: 04/05/18 at 0829 by Siena Tuttle RN RN PT.'S BP WAS 183/99 AND PULSE 126 AND WAS ALSO REPORTED TO DR. RICHARDS . HE STATED TO INFORM DR. CLIFTON A LITTLE LATER THIS MORNING.
[2018-04-05] MEDS ORDERED: ATIVAN PO ONE (06:30)
--- NOTE | 2018-04-05 06:30 | NUR ---
MEDICATION ATIVAN 1 MG PO ONE TIME ORDER WAS GIVEN AT 0630 WITH DIFFICULTY.
--- NOTE | 2018-04-05 06:35 | NUR ---
DR. RICHARDS NOTIFIED DR. RICHARDS THAT PT.'S TONGUE WAS DARTING IN AND OUT AT TIMES. VERBAL ORDER RECEIVED FOR BENADRYL 50 MG PO ONE TIME ORDER.
--- NOTE | 2018-04-05 07:10 | NUR ---
REPORT IT WAS REPORTED TO ONCOMING SHIFT THAT DR. RICHARDS ADVISED NURSES TO CALL DR. CLIFTON LATER IN AM ABOUT BP AND PULSE. Addendum: 04/05/18 at 0844 by Siena Tuttle RN RN LEXIE Carias RN STATED SHE WILL NOTIFY DR. CLIFTON AND REPORT PT.'S BP AND PULSE.
[2018-04-05] MEDS ORDERED: BENADRYL PO STA (07:19)
[2018-04-05] MEDS: FLONASE NS SCH (07:29)
[2018-04-05] MEDS: CLARITIN PO SCH (07:31)
[2018-04-05] MEDS: CELEXA PO SCH (07:32)
[2018-04-05] MEDS: PROTONIX PO SCH (07:32)
[2018-04-05] MEDS: RISPERDAL PO SCH ×2 (07:32→20:26)
[2018-04-05] MEDS: KLOR-CON 10 PO SCH ×2 (07:32→20:26)
[2018-04-05] MEDS: HYDROCHLOROTHIAZIDE PO SCH (07:33)
[2018-04-05] MEDS: BUSPAR PO SCH ×3 (07:33→20:27)
[2018-04-05] MEDS: LOVAZA PO SCH ×2 (07:33→17:11)
--- NOTE | 2018-04-05 07:35 | NUR ---
BENADRYL BENADRYL 50MG PO GIVEN TO PT PER ORDERS OF DR RICHARDS FOR ONE TIME ORDER. WAS GIVEN IN PUDDING AND TAKEN BY PT WITHOUT DIFFICULTY. WILL MONITOR.
[2018-04-05 08:12] VITALS: BP 125/76
--- NOTE | 2018-04-05 08:29 | PRM.PN ---
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 (4) Delusional disorder Anxity Symptoms: RESTLESS LAST NIGHT WITH PICKING AT THINGS Anger/Irritablility: NONE AT THIS TIME Muscle Strength & Tone: WNL (E) Gait & Station: Ataxic Appearance: Normal weight, Appears age stated Attitude & Behaviour: Cooperative/Pleasant Mood & Affect: Flat Orientation: Disoriented to time, Disoriented to situation Attention/Concentration: Poor attention, Poor concentration Speech: Impaired Judgement/Insight: Poor judgement, Poor insight Thought Process: Loose Language: Beninese Thought content/Abnormal/Psych: Delusions Fund of Knowledge: Other Associations: RAND Memory (recent and remote): Recent memory repaired, Remote memory repaired Constitutional: Insomnia Neurological: None Psychiatric: Anxious, Psychosis [place] I: DEPRESSION, ANXIETY, DEMENTIA, DELUSIONAL DISORDER [place] II: DEFERRED [place] III: REFER TO PMH [place] IV: STRESS OF MENTAL HEALTH [place] V: 45 Assessment/Plan Assessment/Plan Patient History: Alzheimer's disease Asthma G8 BROTHER Congestive heart failure G8 BROTHER Hypertension G8 BROTHER No Family History of: Cerebrovascular disorder Chronic obstructive pulmonary disease Diabetes insipidus Diabetes mellitus Parkinson's disease Plan Vital Signs Date Time Temp Pulse Resp B/P (MAP) Pulse Ox O2 Delivery O2 Flow Rate FiO2 04/05/18 08:12 98.1 110 20 125/76 (92) 92 Room Air 98.1 Allergies Coded Allergies Type Severity Reaction Last Updated Verified No Known Drug Allergies Allergy Unknown 07/14/14 No Intake and Output 04/05/18 06:59 Intake Total 1140 ml Balance 1140 ml Intake Oral 1140 ml # Voids 8 THE PATIENT WAS SEEN BY ASHLEY ALVARADO VIA TELEMEDICINE EQUIPMENT (SUPPORTED BY [facility]) ALONG WITH THE TREATMENT TEAM. HE DID NOT SLEEP AT ALL LAST NIGHT. TRAZODONE AND RISPERDAL WERE INCREASED BY DR. RICHARDS. HE ALSO HAD A ONE TIME DOSE OF BENADRYL AFTER DISPLAYING SYMPTOMS OF TD. HE WAS ANXIOUS AND DELUSIONAL LAST NIGHT. HE CONTINUES TO HAVE JERKING IN HIS SLEEP RIGHT NOW. ASSESSMENT: DEPRESSIVE DISORDER, ANXIETY, DELUSIONAL DISORDER, DEMENTIA PLAN: 1. CONTINUE BEHAVIORAL HEALTH MANAGEMENT 2. START BENZTROPINE 0.5MG 1 BY MOUTH BID. FIRST DOSE NOW. CONTINUE CURRENT MEDICATIONS PRESCRIBED. STAFF AGREEABLE WITH PLAN 3. ALL PATIENT QUESTIONS ANSWERED RELATED TO MEDICATIONS, PLAN OF CARE, AND EXPECTED OUTCOMES. 4. SAFETY PLAN DISCUSSED. ASHLEY ALVARADO NP Apr 05, 2018 08:29
--- NOTE | 2018-04-05 08:55 | NUR ---
ZULEMAEE: PT. SEEN BY Maribel ALVARADO NP VIA ZULEMAEE. NO NEW ORDERS RECEIVED Addendum: 04/05/18 at 1743 by Kacey Sen RN RN ginna brown
--- NOTE | 2018-04-05 09:40 | NUR ---
VSEE: PT. SEEN BY Maribel ALVARADO [place] TAX ASSESSOR VIA VSEE. PT. WAS STATED ON COGENTIN 0.5MG BID PO
[2018-04-05] MEDS ORDERED: COGENTIN PO STA (09:44)
--- NOTE | 2018-04-05 10:00 | NUR ---
NEW ORDER NEW ORDER RECEIVED FOR STAT COGENTIN 0.5MG PO AND COGENTIN 0.5MG PO BID. THE STAT DOSE WAS GIVEN AT THIS TIME IN SOME PUDDING. PT TOOK WITHOUT DIFFICULTY. WILL MONITOR.
--- NOTE | 2018-04-05 10:00 | NUR ---
BENADRYL FOLLOW UP PT IS IN RECLINER WITH EYES CLOSED. STAFF BESIDE PT. RESPIRATIONS ARE EVEN AND UNLABORED. NO DISTRESS NOTED.
--- NOTE | 2018-04-05 11:30 | NUR ---
COGENTIN NO ADVERSE EFFECTS NOTED FROM THE COGENTIN AT THIS TIME. WILL CONTINUE TO MONITOR PT.
--- NOTE | 2018-04-05 13:40 | NUR ---
PRN: PT. WOKE UP AND WAS TAKEN TO BATHROOM. PT. IS AGITATED, TRYING TO GET UP OFF STOOL. PT. IS PICKING AT SOMETHING HE SEES IN THE AIR. PT. DID NOT VOID. GOT HIM UP IN WHEELCHAIR AND AND BROUGHT HIM TO THE DAY ROOM. SUPERVISOR ROUGH END WAS TRYING TO FEED PT. HIS LUNCH AND HE STARTING TRYING TO GET UP AND STARTING HITTING AT SUPERVISOR ROUGH END. UNABLE TO REDIRECT PT. PRN HALDOL 2 MG GIVEN PO.
--- NOTE | 2018-04-05 14:33 | NUR ---
F/U PRN: PT. IS A LITTLE CALMER. STILL TRYING TO GET OUT OF WHEELCHAIR BUT IS NOT HITTING.. PT. IS SITTING IN WHEELCHAIR IN DAY ROOM WITH STAFF AT HIS SIDE. Addendum: 04/05/18 at 1456 by Kacey Sen RN RN CORRECTION: PT. WAS SITTING IN W/C IN DAY ROOM AT THE TABLE AND WAS A LITTLE CALMER BUT STILL TRYING TO HIT AT BASKET BRAIDER AT TIMES.
--- NOTE | 2018-04-05 14:50 | NUR ---
BEHAVIOR PT ASSISTED TO THE BATHROOM. HAD TO HAVE ASSIST TIMES 3 STAFF. PT WAS FIGHTING STAFF BY HITTING. PT DID NOT VOID. ASSISTED BACK INTO WHEELCHAIR. PT CONTINUES TO HIT AT STAFF. UNABLE TO REDIRECT PT. ATIVAN 0.5MG PO GIVEN TO PT FOR BEHAVIOR. PT TRIED TO HIT AT NURSE. PT IS A ONE ON ONE AND STAFF IS STAYING WITH PT AT ALL TIMES. WILL MONITOR BEHAVIOR
--- NOTE | 2018-04-05 17:09 | NUR ---
BEHAVIOR PT IS CALMER. NOT TRYING TO HIT STAFF AT THIS TIME. DOES TRY TO STAND UP OCCASIONALLY BUT IS EASILY REDIRECTED BY STAFF. STAFF IS AT PTS SIDE DUE TO BEING ONE ON ONE.
--- NOTE | 2018-04-05 17:13 | NUR ---
PIRP: P: DEMENTIA WITH BEHAVIORAL DISTURBANCE, RISK FOR FALLS. I: MONITOR Q 15 MINUTES FOR SAFETY, PROVIDE SAFE AN SUPPORTIVE ENVIRONMENT. PROVIDE MEDICATIONS ORDERED BY PHYSICIAN, PROVIDE YELLOW NON SKID SOCKS. R: PT. IS MONITORED Q 15 MINUTES FOR SAFETY, PT. IS PROVIDED A SAFE AND SUPPORTIVE ENVIRONMENT, PT. IS TAKING MEDS PRESCRIBED, PT. IS WEARING YELLOW NON SKID SOCKS. PT. SLEPT ALL MORNING IN THE RECLINER AND WHEN HE WOKE UP HE WAS AGITATED, WAS TRYING TO GET UP BY HIMSELF, WHEN NURSES TOOK HIM TO THE BATHROOM HE STATING HITTING THE NURSES. UNABLE TO REDIRECT PT. PT. WAS GIVEN HALDOL 2 MG PO AT 1320 AND PT. CONTINUE THE BEHAVIOR AND WAS GIVEN PRN ATIVAN 0.5MG AT 1448.. PT. HAS QUIT HITTING BUT STILL RESTLESS AND TRYING TO GET OUT OF CHAIR BY HIMSELF. P: CONTINUE CURRENT TX PLAN.
[2018-04-05 17:36] VITALS: BP 121/77
--- NOTE | 2018-04-05 17:52 | NUR ---
DR CLIFTON NOTIFIED DR CLIFTON ASKING IF HE WOULD LOOK AT PTS BLOOD PRESSURES. SOME BLOOD PRESSURES HAVE RUN HIGH. NO NEW ORDERS HAVE BEEN RECEIVED
[2018-04-05] MEDS: COGENTIN PO SCH (20:27)
[2018-04-05] MEDS: DESYREL PO SCH (20:27)
[2018-04-05] MEDS: LIPITOR PO SCH (20:27)
[2018-04-05] MEDS: COLACE PO SCH (20:28)
[2018-04-05 21:04] VITALS: BP 144/93
[2018-04-06] MEDS: ATIVAN PO PRN (00:30)
--- NOTE | 2018-04-06 00:32 | NUR ---
medications Patient aggitated, aggresseve hitting at staff who are attemping to help with ADL's, unable to redirect, ativan 0.5mg given po per prn orders at 0030, per RN
--- NOTE | 2018-04-06 04:36 | NUR ---
PIRP P- BEHAVIORAL DISTRUBANCES AND FALL RISK I- Q 15 MIN MONITORING. PROVIDE SAFE AND SUPPORTIVE ENVIRONMENT. 1:1 WITH STAFF TO EXPRESS FEELINGS AND IDENTIFY STRESSORS. PROVIDE MEDICATION ORDERED. EDUCATE PATIENT TO ALTERNATIVE COPING MECHANISMS. R- PT IS NOT REDIRECTABLE. RAMBLING CONSTANTLY WITH [employer]. GRABBING FOR THINGS NOT THERE, PICKING AT THINGS NOT THERE ON THE FLOOR. DEFIANT WITH REDIRECTION. COMBATIVE WITH STAFF. REMAINS 1:1 AT ALL TIMES AND TWO STAFF REQUIRED FREQUENTLY. PT HAS ONLY SLEPT 1 HOUR THIS PM RESTFULLY. HE WAS LYIN GIN BED WITH EYES CLOSED FOR AN HOUR WITH JERKING MOVEMENTS NOTED. VERY HARD TO DIRECT WHEN ASSISTING PT TO RESTROOM. REMAINS HIGH FALL RISK AND IS WEARING YELLOW NON SKID SOCKS AND BED IN LOW POSITION. P- WILL CONTINUE TO GIVE SIMPLE AND CLEAR INSTRUCTIONS. WILL CONTINUE 1:1 WITH STAFF TO DECREASE RISK FOR FALLS.
[2018-04-06] MEDS: SYNTHROID PO SCH (06:18)
[2018-04-06 07:40] VITALS: BP 132/75
--- NOTE | 2018-04-06 08:28 | PRM.PN ---
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 (4) Delusional disorder Anxity Symptoms: VERY RESTLESS Anger/Irritablility: NOT EASILY REDIRECTED, IRRITABLE Muscle Strength & Tone: WNL Gait & Station: Ataxic Appearance: Casual attire, Normal weight Attitude & Behaviour: Uncooperative, Poor eye contact, Hostile, Psychomotor agitation Mood & Affect: Angry Orientation: Disoriented to place, Disoriented to time, Disoriented to situation Attention/Concentration: Poor attention, Poor concentration Judgement/Insight: Poor judgement, Poor insight Thought Process: Loose Language: Arabic Thought content/Abnormal/Psych: A/V [place], Delusions Fund of Knowledge: Other (IMPAIRED) Associations: RAND Memory (recent and remote): Recent memory repaired, Remote memory repaired Constitutional: Insomnia Neurological: Tremors Psychiatric: Anxious, Psychosis [place] I: DEMENTIA, DEPRESSIVE DISORDER, ANXIETY, DELUSIONAL DISORDER [place] II: DEFERRED [place] III: SEE THE MEDICAL CHART/PMH [place] IV: COGNITIVE DECLINE [place] V: 25 Assessment/Plan Assessment/Plan Patient History: Alzheimer's disease Asthma G8 BROTHER Congestive heart failure G8 BROTHER Hypertension G8 BROTHER No Family History of: Cerebrovascular disorder Chronic obstructive pulmonary disease Diabetes insipidus Diabetes mellitus Parkinson's disease Plan Vital Signs Date Time Temp Pulse Resp B/P (MAP) Pulse Ox O2 Delivery O2 Flow Rate FiO2 04/06/18 07:40 98.4 87 18 132/75 (94) 95 Room Air 98.4 Allergies Coded Allergies Type Severity Reaction Last Updated Verified No Known Drug Allergies Allergy Unknown 07/14/14 No Intake and Output 04/06/18 07:00 Intake Total 178 ml Balance 178 ml Intake Oral 178 ml THE PATIENT WAS SEEN BY ASHLEY ALVARADO VIA TELEMEDICINE EQUIPMENT (SUPPORTED BY [facility]) ALONG WITH THE TREATMENT TEAM. HE IS HIGHLY AGITATED AND DOES NOT WANT TO BE HELPED. HE WAS UP MOST OF THE NIGHT AND IS VERY CONFUSED. HE SLEPT UNTIL 1300 YESTERDAY AND HAS BEEN UP SINCE THEN. HE DENIES BEING TIRED AT THIS TIME. BENZTROPINE WAS STARTED AND HE CONTINUES TO HAVE SOME JERKING BUT NOT MUCH YESTERDAY. HE IS RESTLESS AND AGITATED WITH THE STAFF. ASSESSMENT:DEPRESSIVE DISORDER, ANXIETY, DEMENTIA, DELUSIONAL DISORDER PLAN: 1. CONTINUE BEHAVIORAL HEALTH MANAGEMENT 2. INCREASE RISPERDAL TO 1MG 1 PO TID. INCREASE LORAZEPAM TO 1MG 1 PO EVERY SIX HOURS NEEDED. INCREASE BUSPIRONE TO 10MG 1 BY MOUTH TID. INCREASE BENZTROPINE 1MG 1 BY MOUTH TID. CONTINUE ALL OTHER CURRENT MEDICATIONS PRESCRIBED. STAFF AGREEABLE WITH PLAN 3. ALL PATIENT QUESTIONS ANSWERED RELATED TO MEDICATIONS, PLAN OF CARE, AND EXPECTED OUTCOMES. 4. SAFETY PLAN DISCUSSED. ASHLEY ALVARADO NP Apr 06, 2018 08:28
--- NOTE | 2018-04-06 08:56 | NUR ---
[place] Pt was seen by Dr. Lofton via telemedicine. Received orders to increase scheduled Risperdal, Buspar, Cogentin, and PRN Ativan, see EMAR.
[2018-04-06] MEDS: HYDROCHLOROTHIAZIDE PO SCH (09:06)
[2018-04-06] MEDS: CLARITIN PO SCH (09:06)
[2018-04-06] MEDS: LOVAZA PO SCH ×2 (09:06→17:05)
[2018-04-06] MEDS: KLOR-CON 10 PO SCH ×2 (09:06→20:06)
[2018-04-06] MEDS: PROTONIX PO SCH (09:06)
[2018-04-06] MEDS: FLONASE NS SCH (09:07)
[2018-04-06] MEDS: BUSPAR PO SCH ×3 (09:09→20:07)
[2018-04-06] MEDS: CELEXA PO SCH (09:09)
[2018-04-06] MEDS: RISPERDAL PO SCH ×3 (09:09→20:06)
[2018-04-06] MEDS: COGENTIN PO SCH ×3 (09:09→20:05)
[2018-04-06] MEDS ORDERED: ATIVAN PO PRN (10:00)
--- NOTE | 2018-04-06 17:28 | NUR ---
SUPPALESSIO PT IS ASLEEP AND RN ASKED WE NOT WAKE HIM UP FOR SUPPER. TRAY WAS SET TO THE SIDE FOR LATER. Addendum: 04/06/18 at 1730 by LUPILLO Munson LVN Amended: Links added.
--- NOTE | 2018-04-06 17:29 | NUR ---
PIRP P: Confusion, agitation, fall risk, restlessness I: 1:1 observation, provide safe and supportive environment, give clear and simple instructions, redirect with verbalization, provide 1:1 to encourage expression of feelings, provide task-oriented activities, teach medication management, give medications as ordered, reinforce unit rules, assess for hallucinations and delusions, assist with differentiating between internal and external reality, provide positive feed back on appropriate behaviors R: Pt has had restless, withdrawn affect throughout shift. Becomes agitated and combative with ADLs, continues to have jerk-like movements and worsening tremor with agitation. Unable to answer assessment questions appropriately, exhibits word salad and mumbles. Exhibits varying delusions, difficult to redirect with verbalization, but has not been given PRN medications. P: Pt unable to voice plan, changes made to scheduled Risperdal, Buspar, Cogentin, and PRN Ativan.
[2018-04-06] MEDS: COLACE PO SCH (20:06)
[2018-04-06] MEDS: LIPITOR PO SCH (20:06)
[2018-04-06] MEDS: DESYREL PO SCH (20:06)
--- NOTE | 2018-04-06 22:30 | NUR ---
DIFFICULTY SWALLOWING WHILE ASSISTING WITH FEEDING DINNER AT 2230, DIFFICULTY SWALLOWING WAS NOTED. COUGHING NOTED WHILE DRINKING REGULAR ICED TEA. ONLY THE GROUND MEAT OF THE SPAGHETTI AND THE PEACH COBBLER WERE OFFERED. PT WAS PACKING FOOD IN CHEEKS OF THE MOUTH. THIS NURSE WILL REPORT TO DAY SHIFT RN FOR FURTHER ASSESSMENT.
[2018-04-06 22:45] VITALS: BP 114/74
--- NOTE | 2018-04-07 04:59 | NUR ---
PIRP P- BEHAVIORAL DISTURBANCES AND FALL RISK I- CONTINUE 1:1 STAFF FOR SAFETY OF PT. PROVIDE SAFE AND SUPPORTIVE ENVIRONMENT. 1:1 WITH STAFF TO EXPRESS FEELINGS AND IDENTIFY STRESSORS. PROVIDE MEDICATION ORDERED. EDUCATE PATIENT TO ALTERNATIVE COPING MECHANISMS. R- PT HAD ADEQUATE SLEEP THIS PM. HE WAS COMBATIVE WITH STAFF WHEN TRANSFERRING FROM BED TO WHEELCHAIR. REMAINS 1:1 AT ALL TIMES AND TWO STAFF REQUIRED FREQUENTLY. JERKING MOVEMENT HAVE DECREASED WHILE SLEEPING. SOME NOTED WHEN AWAKE. PT HAD DIFFICULTY SWALLOWING WHILE EATING DINNER THIS PM (SEE NOTE). REMAINS HIGH FALL RISK AND IS WEARING YELLOW NON SKID SOCKS AND BED IN LOW POSITION. P-WILL CONTINUE 1:1 WITH STAFF TO DECREASE RISK FOR FALLS. CONTINUE TO PROVIDE MEDICATIONS ORDERED.
[2018-04-07] MEDS: SYNTHROID PO SCH (05:30)
[2018-04-07] MEDS: LOVAZA PO SCH ×2 (08:00→16:47)
[2018-04-07 08:39] VITALS: BP 149/80
[2018-04-07] MEDS: PROTONIX PO SCH (09:00)
[2018-04-07] MEDS: FLONASE NS SCH (09:00)
[2018-04-07] MEDS: CELEXA PO SCH (09:00)
[2018-04-07] MEDS: RISPERDAL PO SCH ×3 (09:00→21:00)
[2018-04-07] MEDS: HYDROCHLOROTHIAZIDE PO SCH (09:00)
[2018-04-07] MEDS: COGENTIN PO SCH ×3 (09:00→21:00)
[2018-04-07] MEDS: KLOR-CON 10 PO SCH ×2 (09:00→21:00)
[2018-04-07] MEDS: CLARITIN PO SCH (09:00)
--- NOTE | 2018-04-07 09:00 | NUR ---
morning medications unable to administer morning medications d/t cognitive impairment and difficulty swallowing.
--- NOTE | 2018-04-07 09:23 | NUR ---
Tx team Pt was seen by Dr. Rivera via telemed. Received orders to discontinue Buspar and start scheduled Depakote, see EMAR. Addendum: 04/07/18 at 1058 by JOE Alvarado RN Received orders for speech eval.
--- NOTE | 2018-04-07 09:26 | PRM.PN ---
Mood: UP AND DOWN, REQUIRES CONSTANT REDIRECTION Sleep: SLEPT 7.75 HOURS LAST NIGHT Appetite: NORMAL APPETITE, NEEDS ASSISTANCE AND PROMPTING Suidical thoughts: NONE REPORTED Homicidal thoughts: NONE REPORTED Recent stressors: STRESS OF MENTAL ILLNESS Family support: YES Aggressive Behavior: COMBATIVE BEHAVIOR, AGGRESSIVE TO ASSISTANCE Ability to Perform ADL'sc: NEEDS ASSISTANCE Psychotic sympstoms: DELUSIONAL THINKING, PARANOIA, HALLUCINATIONS Manic Symptoms: NONE REPORTED Living situation: WAS LIVING AT [facility] Illicit Drug usec: NONE REPORTED Alcoholo use: NONE REPORTED Tobacco use: NONE REPORTED Anxity Symptoms: MODERATE ANXIETY LEVEL Anger/Irritablility: PROBLEMS WITH ANGER AND IRRITABILITY Muscle Strength & Tone: WNL Gait & Station: Ataxic Appearance: Well groomed/hygience, Casual attire, Appears age stated, Overweight Attitude & Behaviour: Uncooperative, Poor eye contact, Psychomotor agitation Mood & Affect: Iabile, Angry, Depressed Orientation: Disoriented to place, Disoriented to time, Disoriented to situation Attention/Concentration: Poor attention, Poor concentration Speech: Impaired Judgement/Insight: Poor judgement, Poor insight Thought Process: Loose, Tangential Language: Thai Thought content/Abnormal/Psych: Delusions Fund of Knowledge: Other Associations: RAND Memory (recent and remote): Recent memory repaired, Remote memory repaired Constitutional: None Neurological: Weakness Psychiatric: Depressed, Anxious, Psychosis [place] I: DELUSIONAL DISORDER, DEPRESSION, DEMENTIA, ANXIETY [place] II: DEFERRED [place] III: REFER TO PMH/MEDICAL CHART [place] IV: STRESS OF MENTAL ILLNESS [place] V: GAF=25 Assessment/Plan Assessment/Plan Assessment/Plan Vital Signs Date Time Temp Pulse Resp B/P (MAP) Pulse Ox O2 Delivery O2 Flow Rate FiO2 04/07/18 08:39 98.0 83 22 149/80 (103) 97 Room Air 98.0 Allergies Coded Allergies No Known Drug Allergies (Unverified Allergy, Unknown, 07/14/14) I & O 03/30/18 11:24 Thru 04/06/18 22:30 Intake Total 7805 ml Output Total 1 ml Balance 7804 ml Current Medications Medications (Trade) Dose Ordered Sig/Karley Route Start Time Stop Time Status Last Admin Dose Admin Risperidone (Risperdal) 1 mg TID PO 04/06/18 15:00 05/06/18 14:59 8/7/18 20:06 1 MG Benztropine Mesylate (Cogentin) 1 mg TID PO 04/06/18 15:00 05/06/18 14:59 04/06/18 20:05 1 MG Buspirone HCl (Buspar) 10 mg TID PO 04/06/18 15:00 05/06/18 14:59 04/06/18 20:07 10 MG THE PATIENT WAS SEEN BY DR. RICHARDS VIA TELEMEDICINE EQUIPMENT (SUPPORTED BY [facility]) ALONG WITH THE TREATMENT TEAM. THE PATIENT CONTINUES TO BE VERY CONFUSED. HE IS DISORIENTED TO PLACE, TIME, AND SITUATION. THE PATIENT IS ON 1:1 MONITORING. THE PATIENT HAS COMBATIVE BEHAVIOR. THE PATIENT IS NOT ABLE TO ANSWER QUESTIONS VERY WELL. HE IS A FULL ASSIST ON HIS ADLS. THE PATIENT HAS DELUSIONS AND HALLUCINATIONS. THE PATIENT REFUSES HIS MEDICATIONS AT TIMES. HIS MEDICATIONS ARE CRUSHED. THE PATIENT HAS A MODERATE TO HIGH ANXIETY LEVEL. THE PATIENT IS RESTLESS. HE REQUIRES CONSTANT REDIRECTION. THE PATIENT DOES HAVE SOME JERKINESS AND SHAKING MOTIONS THAT HAVE IMPROVED WITH THE COGENTIN. ASSESSMENT: DELUSIONAL DISORDER, PSYCHOSIS, MAJOR DEPRESSIVE DISORDER, GENERALIZED ANXIETY DISORDER; DEMENTIA WITH BEHAVIOR PROBLEMS PLAN: 1) CONTINUE BEHAVIORAL HEALTH MANAGEMENT. 2) START DEPAKOTE SPRINKLES 250MG PO BID. DISCONTINUE BUSPAR. CONTINUE OTHER MEDICATIONS AT CURRENT DOSES. STAFF AGREEABLE WITH THE PLAN. SUPPORTIVE THERAPY GIVEN. THE PATIENT DOES NOT VOICE SI OR HI. 16 MINUTES SPENT IN SUPPORTIVE THERAPY. 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
--- NOTE | 2018-04-07 11:25 | NUR ---
STATUS VS 129/72,75,19 91% 02 SAT. ABDOMINAL BREATHING WAS OBSERVED. BRIEN CARE PROVIDED. PT. OPENED EYES AND WAS ASSISTED WITH DRINKING FLUIDS. PT. DRANK 3 SIPS OF WATER VIA [place] UP 90%. NO DIFFICULTY SWALLOWING OBSERVED. PT. WAS TURNED TO LEFT SIDE. LOWER LEGS PROPPED UP ON PILLOWS WITH HEALS FLOATED OFF MATTRESS. SOME JERKING MOVEMENTS AND SOME DARTING OF TONGUE OBSERVED AT THIS TIME. Addendum: 04/08/18 at 0054 by Siena Tuttle RN RN TIME WAS 2325 Addendum: 04/08/18 at 0055 by Siena Tuttle RN RN TIME WAS 2324
--- NOTE | 2018-04-07 18:29 | NUR ---
PIRP P: Restless, confused, agitation I: provide safe and supportive environment, 1:1 observation, provide task-oriented activities, alternate rest/activity, teach and model appropriate behaviors, provide 1:1 to encourage expression of feelings, give clear and simple instructions, redirect with verbalization, teach relaxation techniques, assess reasons for irritability and agitation, provide reality orientation, give medications as ordered R: Pt has had withdrawn affect throughout shift. Does become agitated and combative with ADLs, restless, difficult to redirect with verbalization. Has slept on and off throughout shift, continues to have jerking movements. Requires total assistance with all ADLs. Unable to answer assessment questions appropriately, exhibits word salad and garbled speech @ times. P: Pt had speech eval, is now on pureed diet. Buspar was discontinued and Depakote sprinkles were started.
[2018-04-07 20:50] VITALS: BP 121/66
[2018-04-07] MEDS: DESYREL PO SCH (21:00)
[2018-04-07] MEDS: LIPITOR PO SCH (21:00)
[2018-04-07] MEDS: COLACE PO SCH (21:00)
[2018-04-07] MEDS: DEPAKOTE SPRINKLE PO SCH (21:00)
--- NOTE | 2018-04-07 21:22 | NUR ---
MEDICATION PT. IN BED SNORING AT TIMES. STAFF PROVIDED BRIEN CARE AND TURNED AND REPOSITIONED PT. DR. RICHARDS NOTIFIED AND VERBAL ORDER RECEIVED TO HOLD ALL HS MEDICATION TONIGHT.
[2018-04-07 23:55] VITALS: BP 129/72
[2018-04-08 03:00] VITALS: BP 146/64
--- NOTE | 2018-04-08 03:24 | NUR ---
STATUS PT. WAS LYING IN BED ,CONTINUES TO EXHIBIT INVOLUNTARY MOVEMENTS,REPOSITIONED FOR COMFORT,PT. INCONT. OF URINE AND BRIEN CARE PROVIDED AND ORAL CARE WELL. PT CONTINUES TO BREATH USING ABDOMINAL MUSCLES. RESP. EVEN AND NON LABORED. VS 146/64,78, 18 ,02 SAT 94% PT. DRANK ONE SIP OF WATER WITHOUT DIFFICULTY SWALLOWING. REMAINS 1:1 WITH STAFF AT ALL TIMES.
[2018-04-08] MEDS: SYNTHROID PO SCH (05:46)
--- NOTE | 2018-04-08 06:29 | NUR ---
STATUS PT. LYING IN BED AWAKE. CONTINUES TO EXHIBIT INVOLUNTARY MOVEMENTS.REPOSITIONED FOR COMFORT. PT. INCON. OF SMALL AMOUNT OF URINE AND BRIEN CARE PROVIDED.PT. DRANK 3 GULPS OF WATER WITHOUT DIFFICULTY SWALLOWING AND PT. SAID THANK YOU. VS 122/85,93,20 AND 02 SAT. 95%. RESP. EVEN AND NON LABORED.
[2018-04-08 07:38] VITALS: BP 131/94
--- NOTE | 2018-04-08 07:59 | PRM.PN ---
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 (3) Depressive disorder (4) Anxiety state Anxity Symptoms: NONE NOTED Anger/Irritablility: NONE NOTED Muscle Strength & Tone: WNL Gait & Station: Ataxic Appearance: Appears older Attitude & Behaviour: Poor eye contact, Psychomotor agitation Mood & Affect: Flat Orientation: Disoriented to place, Disoriented to time Attention/Concentration: Poor attention, Poor concentration Speech: Impaired (SPEECH IS DIFFICULT TO UNDERSTAND) Judgement/Insight: Poor judgement, Poor insight Thought Process: Loose Language: Pashto Thought content/Abnormal/Psych: A/V [place] [employer] of Knowledge: Other Associations: RAND Memory (recent and remote): Recent memory repaired, Remote memory repaired Constitutional: None Neurological: Tremors, Weakness Psychiatric: Psychosis Webb I: DEMENTIA, DELUSIONAL DISORDER, ANXIETY, DEPRESSION Webb II: DEFERRED Webb III: SEE MEDICAL CHART/PMH Webb IV: COGNITIVE DECLINE Webb V: 25 Assessment/Plan Assessment/Plan Patient History: Alzheimer's disease Asthma G8 BROTHER Congestive heart failure G8 BROTHER Hypertension G8 BROTHER No Family History of: Cerebrovascular disorder Chronic obstructive pulmonary disease Diabetes insipidus Diabetes mellitus Parkinson's disease Plan Vital Signs Date Time Temp Pulse Resp B/P (MAP) Pulse Ox O2 Delivery O2 Flow Rate FiO2 04/08/18 07:38 98.0 87 20 131/94 (106) 92 Room Air 98.0 Allergies Coded Allergies Type Severity Reaction Last Updated Verified No Known Drug Allergies Allergy Unknown 07/14/14 No Intake and Output 04/08/18 07:00 Intake Total 590 ml Balance 590 ml Intake Oral 590 ml THE PATIENT WAS SEEN BY ASHLEY ALVARADO VIA TELEMEDICINE EQUIPMENT (SUPPORTED BY [facility]) ALONG WITH THE TREATMENT TEAM. HE HAS DECLINED OVER THE PAST FEW DAYS. HE IS NO LONGER CONTINENT, HE IS CONFUSED AND APPEARS BE HAVING AUDITORY HALLUCINATIONS. HE IS HAVING PROBLEMS WITH SWALLOWING AT TIMES AND IS HAVING INVOLUNTARY JERKING MOVEMENTS ALTHOUGH HE IS TAKING BENZTROPINE. HE WAS UNABLE TO TOLERATE HIS AM OR PM MEDICATIONS YESTERDAY DUE TO LETHARGY SO THEY WERE HELD. HE WAS ALERT MIDDAY YESTERDAY AND RECEIVED MEDICATIONS THEN. HE IS UNABLE TO COMUNICATE WELL AT THIS TIME. ASSESSMENT: DEMENTIA, DEPRESSION, ANXEITY, DELUSIONAL DISORDER PLAN: 1. CONTINUE BEHAVIORAL HEALTH MANAGEMENT 2. HOLD ALL PSYCHOACTIVE MEDICATIONS UNTIL VISIT TOMORROW, WE WILL THEN RE- EVALUATE HIS STATUS. STAFF AGREEABLE WITH PLAN 3. ALL PATIENT QUESTIONS ANSWERED RELATED TO MEDICATIONS, PLAN OF CARE, AND EXPECTED OUTCOMES. 4. SAFETY PLAN DISCUSSED. ASHLEY ALVARADO NP Apr 08, 2018 07:59
[2018-04-08] MEDS: LOVAZA PO SCH ×2 (08:00→17:00)
[2018-04-08] MEDS: COGENTIN PO SCH (09:00)
[2018-04-08] MEDS: KLOR-CON 10 PO SCH (09:00)
[2018-04-08] MEDS: FLONASE NS SCH (09:00)
[2018-04-08] MEDS: DEPAKOTE SPRINKLE PO SCH (09:00)
[2018-04-08] MEDS: RISPERDAL PO SCH (09:00)
[2018-04-08] MEDS: HYDROCHLOROTHIAZIDE PO SCH (09:00)
[2018-04-08] MEDS: CLARITIN PO SCH (09:00)
[2018-04-08] MEDS: PROTONIX PO SCH (09:00)
[2018-04-08] MEDS: CELEXA PO SCH (09:00)
[2018-04-08] MEDS ORDERED: ATIVAN IV STA (12:30)
[2018-04-08] MEDS ORDERED: NS 1000ML 1,000 ML IV ONE (12:30)
[2018-04-08 12:51] LABS: ABG PCO2 35.9 mmHg (35.0-45.0); ABG PH 7.453 (7.350-7.450); BE(B) 1.1 mmol/L (-2.0-2.0); HCO3act 24.6 mmol/L (22.0-26.0); pO2 69.6 mmHg (75.0-100.0)
[2018-04-08 13:13] LABS: BASOPHIL % 0.2 % (0.0-0.2); EOSINOPHIL # 0.1 10^3/uL (0.0-0.2); HEMOGLOBIN 16.1 g/dL (13.9-16.3); LYMPHOCYTES # 0.8 10^3/uL (1.0-4.8); LYMPHOCYTES % 10.1 % (24.0-44.0); MEAN CELL HGB 32.1 pg (26-34); MEAN CORP VOLUME 91.8 fL (78-100); MEAN PLATELET VOLUME 9.9 fL (7.8-11.0); MONOCYTES # 0.7 10^3/uL (0.3-0.8); NEUTROPHIL # 6.4 10^3/uL (1.8-7.7); NEUTROPHILS % 79.7 % (41.0-85.0); RED CELL DISTRIBUTION WIDTH 13.8 % (11.5-14.5)
[2018-04-08 13:42] LABS: CALCIUM 8.9 mg/dL (8.4-10.5); CARBON DIOXIDE 24.6 mmol/L (20.0-32)
--- NOTE | 2018-04-08 14:37 | PCM.EKG ---
[facility] Test Date: 2018-04-08 Test Time: 14:41:30 Pat Name: DEWEY BLANCHARD Department: Room: 213 A Gender: M Computer Aide: RAMON : 1945 Requested By: SUKHI CLIFTON Order Number: [id number] Reading MD: Measurements Intervals [place] Rate: 96 P: 50 IA: 136 QRS: -71 QRSD: 86 T: 65 QT: 344 QTc: 434 Interpretive Statements Normal sinus rhythm Left anterior fascicular block Abnormal ECG No previous ECG available for comparison Please click the below link to view image of tracing.
--- NOTE | 2018-04-08 16:14 | NUR ---
Dr. Rivera Spoke to Dr. Rivera regarding pt status. Received orders for Ativan and Benadryl, see EMAR. Dr. Lynch notified of hospice referral. Jessica Smith LMSW to contact family and hospice agency of choice.
[2018-04-08] MEDS ORDERED: ATIVAN IV PRN (16:30)
[2018-04-08] MEDS ORDERED: BENADRYL IV ONE (16:30)
--- NOTE | 2018-04-08 17:06 | NUR ---
GMAS SCORE: 0/30. PT REFUSED TO PARTICIPATE IN EXAM AND CURRENTLY UNABLE TO COGNITIVELY. Addendum: 04/08/18 at 1712 by Veena JAIMES *INCORRECT TIME/DATE STAMP* ASSESSMENT COMPETED ON 03/31/18 @ 6122*
--- NOTE | 2018-04-08 17:08 | NUR ---
SYMPTOMATOLOGY: PT IS A RESIDENT AT [facility]. PT WAS BROUGHT TO [facility] FOR BEHAVIORS HE WAS EXHIBITING AT [facility]. PT WAS REFUSING TO EAT, PARTICIPATE IN ADL'S DUE TO SIGNIFICANT ANXIETY/AGITATION. PT WAS UP ALL NIGHT AND WAS PHYSICALLY AND VERBALLY AGGRESSIVE TOWARDS STAFF. DUE TO BEING A DANGER TO HIMSELF AND OTHERS. PT WAS INVOLUNTARY COMMITTED INTO THE [facility]. GOAL UPON DISCHARGE IS TO RETURN BACK TO [facility]. Addendum: 04/08/18 at 1712 by Veena JAIMES *INCORRECT TIME/DATE STAMP* ASSESSMENT COMPETED ON 03/31/18 @ 9445*
--- NOTE | 2018-04-08 17:40 | NUR ---
Status Spoke to Dr. Rivera and Dr. Lynch, both in agreement that pt would benefit from Hospice. Attempts have been made to contact pt's , no answer. Pending transfer to [facility] for medical management.
--- NOTE | 2018-04-08 18:44 | NUR ---
D/C PLANNING: SS REACHED OUT TO [facility] WITH [facility] TO GET PT'S 'S ELIS'S PHONE NUMBER. NUMBER PROVIDED WAS [phone]. THEODORE AND Jv PARK RN VISITED WITH PT'S REGARDING PT'S MEDICAL DECLINE. PT'S WAS EDUCATED ON PALLIATIVE CARE. PT'S WAS IN AGREEMENT TO MOVE PT TO THE MEDICAL FLOOR AND TRANSITION INTO PALLIATIVE CARE WITH [facility] AT [facility]. PT'S WOULD LIKE TO MAKE PT COMFORTABLE AT THIS TIME UNTIL HE CAN TRANSITION BACK TO [facility]. JOSE D WITH [facility] NOTIFIED OF REFERRAL AND STATED SHE WOULD CALL THE AND THEY WOULD ARRANGE TRANSPORTATION TO COME BACK TOMORROW IF POSSIBLE. SW LET JOSE D KNOW THAT SHE STILL NEEDED TO VISIT WITH THE DON TO MAKE SURE PT WOULD BE GOOD TO COME BACK UNDER PALLIATIVE CARE AND THAT THEY WOULD BE ABLE TO TAKE HIM BACK TOMORROW SINCE SHE WAS OUT OF THE OFFICE WHEN SW ATTEMPTED TO CALL HER REGARDING PT. GOAL AT THIS TIME IS TO TRANSITION TO THE MEDICAL FLOOR AND TRANSITION BACK TO [facility] UNDER [facility]. NO FURTHER SW NEEDS KNOWN AT THIS TIME.
[2018-04-08 19:30] VITALS: BP 167/98
--- NOTE | 2018-04-08 20:00 | NUR ---
discharge PT. WAS DISCHARGED AND TRANSFERRED TO MEDICAL SURGICAL UNIT AT 1940,VIA BED, ACCOMPANIED BY ANJUM DIAZ AND CESAR Caba CNA. REPORT GIVEN TO JUAN A DIAZ. PT. CONTINUED TO EXHIBIT INVOLUNTARY MOVEMENTS. RESP. EVEN AND NON LABORED. RESP.20. 02 SAT. 95% TEMP 99.1 AX. AND BP 167/98.
[2018-04-08 20:01] VITALS: BP 167/98
[2018-04-08] MEDS ORDERED: DOCU-123 PO (22:31)
[2018-04-08] MEDS ORDERED: ALPR0.5T6 PO (22:31)
[2018-04-08] MEDS ORDERED: RISP0.5T24 PO (22:31)
[2018-04-08] MEDS ORDERED: CYAN10002 IJ (22:31)
[2018-04-08] MEDS ORDERED: LEVO50TA PO (22:31)
[2018-04-08] MEDS ORDERED: HYDR25TA9 PO (22:31)
[2018-04-08] MEDS ORDERED: PRAV20TA PO (22:31)
[2018-04-08] MEDS ORDERED: ONDA4TAB10 PO (22:31)
[2018-04-08] MEDS ORDERED: ESCI20TA10 PO (22:31)
[2018-04-08] MEDS ORDERED: MOME17SP (22:31)
[2018-04-08] MEDS ORDERED: BUSP5TAB2 PO (22:31)
[2018-04-08] MEDS ORDERED: LOPE2CAP94 PO (22:31)
[2018-04-08] MEDS ORDERED: ACET325T12 PO (22:31)
[2018-04-08] MEDS ORDERED: LORA10TA75 PO (22:31)
[2018-04-08] MEDS ORDERED: PANT40TA3 PO (22:31)
[2018-04-08] MEDS ORDERED: OMEG1CAP2 PO (22:31)
[2018-04-08] MEDS ORDERED: TRAZ50TA18 PO (22:31)
[2018-04-08] MEDS ORDERED: POTA20TA91 PO (22:31)
--- NOTE | 2018-04-08 22:53 | DSH ---
DATE OF DISCHARGE: 04/08/2018 HOSPITAL COURSE: The patient is a 73-year-old male who was an involuntary admission to the Behavioral Health Unit for aggressive and delusional behavior at the [facility]. The patient was on 1:1 care at the assisted and they were not able to redirect him. The patient was on 1:1 monitoring while on the Behavioral Health Unit for most of the time. The patient stopped taking oral medications and declined significantly towards the end of his stay. He was evaluated by Dr. Lynch and by Dr. Rivera. Both physicians felt like he needed a hospice consult. He was given IV fluids on 04/08/2018 on the psychiatric floor and he did not show improvement. He was transferred to the medical floor with the hopes of being on hospice. Staff is working on getting family to get a hospice consult, although the patient can have good palliative care as he is declining physically. He is not being discharged on any oral medications as he is refusing all oral medications at this time. DISCHARGE DIAGNOSES: Failure to thrive, delusional disorder, generalized anxiety, severe dementia. DISCHARGE PLAN: 1. The patient is being discharged to the medical floor for palliative care. Dr. Lynch is aware of the situation. 2. The patient is not being discharged on any oral medications. 3. Staff is working on talking in the family about getting hospice consult. Benja Rivera IV MD DR: Thalia JOB# [id number]
--- NOTE | 2018-04-26 10:00 | NUR ---
Co-Signature For MT Assessment I, ALISHA Pizarro am co-signing Music [employer] Activities Assessment with completion of this attached note. Signed: 04/26/18 at 1001 by ALISHA Pizarro OT Addendum: 04/26/18 at 1001 by ALISHA Pizarro OT Amended: Links added.
== END 2018-04-08 20:44 | disposition hospice, inpatient (51) | DRG 885 ==
LOC: GP 10:34 → EEVIPCON 10:34
PROVIDERS: ADMIT Psychiatry & Neurology Psychiatry; ATTEND Psychiatry & Neurology Psychiatry
DX: F22 Delusional disorders (principal); F02.81 Dementia in other diseases classified elsewhere, unspecified severity, with behavioral disturbance; G30.9 Alzheimer's disease, unspecified; F41.1 Generalized anxiety disorder; E78.5 Hyperlipidemia, unspecified; E03.9 Hypothyroidism, unspecified; I73.9 Peripheral vascular disease, unspecified; K21.9 Gastro-esophageal reflux disease without esophagitis; F31.9 Bipolar disorder, unspecified; I10 Essential (primary) hypertension; F51.01 Primary insomnia; R62.7 Adult failure to thrive; W18.39XA Other fall on same level, initial encounter; Z79.899 Other long term (current) drug therapy; Z82.49 Family history of ischemic heart disease and other diseases of the circulatory system; Z82.5 Family history of asthma and other chronic lower respiratory diseases; Z82.0 Family history of epilepsy and other diseases of the nervous system; Y93.89 Activity, other specified; Y92.89 Other specified places as the place of occurrence of the external cause; Y99.8 Other external cause status
CPT/HCPCS: 36415; 36600; 80053; 81000; 82550; 82553; 82803; 84484; 85025; 92610; 93005; 97150; 97165; G8987; G8988; J1200; J2060; J3480; J7030; Q0163; G8996-CM; G8997-CK; J1630

== ENCOUNTER 2018-04-08 21:00 | Inpatient (IN) | payer OTHER ==
[~2018-04-08] VITALS: Ht 182.9 cm; Wt 82.6 kg
--- NOTE | 2018-04-08 19:50 | NUR ---
Pt arrived to Med-Surg via bed from [facility]. Plans to admit pt to [facility] tomorrow. Report received, assumed care.
[2018-04-08 21:00] VITALS: BP 184/114
[~2018-04-08 21:00] MED LIST changes: +ALPR0.5T6 PO; +BUSP5TAB2 PO; +CYAN10002 IJ; +ESCI20TA10 PO; +LOPE2CAP94 PO; +LORA10TA75 PO; +MOME17SP; +OMEG1CAP2 PO; +ONDA4TAB10 PO; +RISP0.5T24 PO; +TRAZ50TA18 PO
--- NOTE | 2018-04-08 21:00 | NUR ---
Pt transferred to room 314 to be closer to nurses station, pt has previously been on 1:1 status prior to being admitted to [facility]-surg.
--- NOTE | 2018-04-08 21:45 | NUR ---
Pt cleaned and changed, skin care and oral care provided at this time. Suction used to reduce secretions during oral care as well. Pt tolerated fair.
[2018-04-08] MEDS ORDERED: TYLENOL PO PRN (22:00)
[2018-04-08] MEDS ORDERED: ZOFRAN IV PRN (22:00)
[2018-04-08] MEDS ORDERED: RISP0.5T24 PO (22:31)
[2018-04-08] MEDS ORDERED: ACET325T12 PO (22:31)
[2018-04-08] MEDS ORDERED: PRAV20TA PO (22:31)
[2018-04-08] MEDS ORDERED: LOPE2CAP94 PO (22:31)
[2018-04-08] MEDS ORDERED: ONDA4TAB10 PO (22:31)
[2018-04-08] MEDS ORDERED: CYAN10002 IJ (22:31)
[2018-04-08] MEDS ORDERED: OMEG1CAP2 PO (22:31)
[2018-04-08] MEDS ORDERED: ESCI20TA10 PO (22:31)
[2018-04-08] MEDS ORDERED: PANT40TA3 PO (22:31)
[2018-04-08] MEDS ORDERED: BUSP5TAB2 PO (22:31)
[2018-04-08] MEDS ORDERED: HYDR25TA9 PO (22:31)
[2018-04-08] MEDS ORDERED: DOCU-123 PO (22:31)
[2018-04-08] MEDS ORDERED: MOME17SP (22:31)
[2018-04-08] MEDS ORDERED: ALPR0.5T6 PO (22:31)
[2018-04-08] MEDS ORDERED: LEVO50TA PO (22:31)
[2018-04-08] MEDS ORDERED: TRAZ50TA18 PO (22:31)
[2018-04-08] MEDS ORDERED: LORA10TA75 PO (22:31)
[2018-04-08] MEDS ORDERED: POTA20TA91 PO (22:31)
[2018-04-08] MEDS: NS 1000ML 1,000 ML IV SCH (23:20)
[2018-04-09] VITALS (7 sets, daily range): BP systolic 98–180; BP diastolic 65–111
[2018-04-09] MEDS ORDERED: ATIVAN ONE (00:02)
[2018-04-09] MEDS ORDERED: BENADRYL ONE (00:02)
--- NOTE | 2018-04-09 00:02 | NUR ---
Pt appears to be more agitated than when arrived to unit, thrashing arms and legs out extended, muscles flexed. Bed rails padded to provided protection for pt. Pt briefly responds to name with eye contact only, but then begins to thrash around again. Dr. Lynch called, notified of pt status, new order received for 1mg Ativan IV and 50mg of Benadryl IV as was given previously in the U with good results. Meds to be given momentarily.
[2018-04-09] MEDS ORDERED: ATIVAN IV ONE (00:30)
[2018-04-09] MEDS ORDERED: BENADRYL IV ONE (00:30)
--- NOTE | 2018-04-09 01:14 | NUR ---
Pt noted to have labored respirations, appears dusky, O2 sats taken- 55% on RA, O2 placed on pt at 5Lpm via NC, O2 sats slowly increased to 88-90%. Pt appeared less agitated once O2 was placed, will continue to monitor sats closely. Will notify Dr. Lynch of changes.
--- NOTE | 2018-04-09 01:45 | NUR ---
Pt repositioned for comfort. HOB elevated to assist with respiratory effort. VS obtained, O2 sats 71-77% on 5L of O2 via NC, BP 180/111, temp 101.7 AX, respirations 40, HR 128. Attempting to notify Dr. Lynch of pt status now.
--- NOTE | 2018-04-09 01:50 | NUR ---
Called Dr. Lynch to make him aware of pt status, may place pt on non-rebreather at this time to make respirations less labored. Continue to provide appropriate supportive care.
--- NOTE | 2018-04-09 01:55 | NUR ---
RT called and notified of need for non-rebreather for pt. Stated they will be there soon.
--- NOTE | 2018-04-09 02:15 | NUR ---
Non-rebreather placed on pt at this time at 10L, O2 sats increased to 90%, pt appears less labored after a few minutes. Repositioned for comfort at this time as well.
[2018-04-09 05:14] LABS: CALCIUM 8.4 mg/dL (8.4-10.5); CARBON DIOXIDE 20.5 mmol/L (20.0-32)
--- NOTE | 2018-04-09 05:25 | NUR ---
Pt has remained 99% on non-rebreather since 299, work of breathing has greatly decreased and respiratory rate has decreased from 40/min to 28/min non-labored. Pt placed back on NC at 5Lpm at this time. Will monitor very closely to determine if pt will tolerate change. If pt exhibits respiratory distress again, non-rebreather will be placed back on.
--- NOTE | 2018-04-09 06:24 | NUR ---
Pt continues to rest comfortably, resp rate stable for pt at 28, appear non-labored. O2 sats 96% HR 86. Will leave pt on NC at 5Lpm for time being. Will continue to monitor resp status closely.
--- NOTE | 2018-04-09 06:26 | NUR ---
Report to be given to oncoming shift.
--- NOTE | 2018-04-09 06:30 | NUR ---
REPORT REPORT RECEIVED FROM Louie LOPEZ RN. PT RESTING IN BED WITH EYES CLOSED, NC IN PLACE @5L. NOTED FAST RESPIRATIONS. CALL LIGHT IN REACH. SIDERAILS UP. BED IN LOWEST POSITION. WILL MONITOR.
[2018-04-09] MEDS: NS 1000ML 1,000 ML IV SCH ×2 (08:31→18:18)
--- NOTE | 2018-04-09 13:22 | NUR ---
DISCHARGE PLANNING: PT WAS A RESIDENT AT [facility] AND WAS BROUGHT TO THE U DUE TO BEHAVIORS HE WAS EXHIBITING AT LONG TERM. PT REQUIRED ASSISTANCE AND USED A WALKER OR WHEEL CHAIR TO ASSIST WITH AMBULATION. DUE TO DECLINE HOSPICE WAS DISCUSSED WITH PT'S NOREEN AND SHE WANTED TO USE [facility] AND HAVE PT GO BACK TO [facility] TO BE CLOSER TO FAMILY. PT'S PCP DR. LAKHANI ASKED HOSPICE TO HOLD OFF UNTIL HE GOT BACK TO FACILITY SO SHE COULD EVALUATE BEFORE HOSPICE WAS INITIATED TO ENSURE PT WAS HOSPICE APPROPRIATE SINCE PT HAS A HISTORY OF DECLINING AND BOUNCING BACK. AFTER A DOC TO DOC WAS PERFORMED IT WAS IN AGREEMENT TO LEAVE PT HERE OVER THE WEEKEND FOR FURTHER MEDICAL MANAGEMENT AND IF PT IS ABLE TO TRANSPORT BACK TO [place] ON Thursday04/12/18. SS TO CONTINUE TO FOLLOW AND ASSIST WITH DISCHARGE PLANNING.
[2018-04-09] MEDS ORDERED: BENADRYL IV PRN (13:30)
[2018-04-09 13:32] LABS: BASOPHIL % 0.1 % (0.0-0.2); EOSINOPHIL % 0.3 % (0.0-5.0); HEMOGLOBIN 15.1 g/dL (13.9-16.3); LYMPHOCYTES % 8.6 % (24.0-44.0); MEAN CELL HGB 32.7 pg (26-34); MEAN CELL HGB CONCENTRATION 34.5 g/dL (33-37); MEAN CORP VOLUME 94.8 fL (78-100); MEAN PLATELET VOLUME 9.8 fL (7.8-11.0); MONOCYTES % 8.3 % (5.0-12.0); NEUTROPHIL # 9.8 10^3/uL (1.8-7.7); NEUTROPHILS % 82.5 % (41.0-85.0); RED CELL DISTRIBUTION WIDTH 13.8 % (11.5-14.5); WHITE BLOOD CELL 11.9 10^3/uL (4.5-11.0)
--- NOTE | 2018-04-09 13:36 | DIREP ---
PROCEDURE:CHEST 1 VIEW COMPARISON:[facility], CR, XRAY CHEST 2 VWS, 03/29/2018, 02:57 PM. INDICATIONS:Hypoxia FINDINGS: LUNGS/PLEURA:A shallow inspiratory excursion is noted. This results in crowding of the bronchopulmonary vascular structures, notably in the perihilar regions. No definitive evidence of consolidative infiltrate or sizable pleural effusion VASCULATURE:Normal. Unremarkable pulmonary vasculature. CARDIAC:Normal. No cardiac silhouette abnormality or cardiomegaly. MEDIASTINUM:Normal. No visible mass or adenopathy. BONES:Normal. No fracture or visible bony lesion. OTHER:Negative. CONCLUSION:Shallow inspiratory excursion. No active cardiopulmonary disease process Dictated by: Megha Gongora M.D. on 04/09/2018 at 01:33 PM
--- NOTE | 2018-04-09 14:05 | NUR ---
ORAL CARE PT BRIEF AND LINENS CHANGED. ORAL CARE PROVIDED. PT TOLERATED FAIR. CALL LIGHT IN REACH. SIDE RAILS UP, BED IN LOWEST POSITION. WILL MONITOR.
[2018-04-09 14:23] LABS: CALCIUM 8.5 mg/dL (8.4-10.5); CARBON DIOXIDE 25.9 mmol/L (20.0-32)
[2018-04-09] MEDS: ATIVAN IV PRN ×3 (14:25→23:29)
[2018-04-09] MEDS: ROCEPHIN 1,000 MG in NS 100ML 100 ML IV SCH (14:25)
--- NOTE | 2018-04-09 14:31 | NUR ---
TROPONIN CRITICAL LAB NOTIFIED BY MARILEE IN LAB. TROPONIN IS 5.76. DR. CLIFTON TO BE NOTIFIED
[2018-04-09] MEDS: LOVENOX SQ SCH ×2 (14:50→21:41)
--- NOTE | 2018-04-09 18:35 | NUR ---
report received report from offgoing shift
--- NOTE | 2018-04-09 22:49 | HPH ---
ADMIT DATE: 04/09/2018 CHIEF COMPLAINT: Altered mental status, decreased level of responsiveness on the Behavioral Health Unit. HISTORY OF PRESENT ILLNESS: Please refer to history and physical dictated by me on 04/02/2018 for full details. The patient was initially admitted to the Geropsych unit with reports of aggressive behavior. He required a one-to-one for the first couple of days. He was medically managed. Over the last 24 hours though he has significantly declined from a medical standpoint per report of the staff there. He was much less responsive. History is difficult to obtain. He does have a productive cough. At the time of exam, he does respond to stimuli, but does not have ability to have a conversation at this point. A conversation was held with the physician that knows him in [place] and he previously had had a decent functional status, although he does have a baseline dementia. His past medical history, past surgical history, allergies, home medications, social history and family history per H and P dictated by me on 04/02/2018. REVIEW OF SYSTEMS: Unable to obtain due to altered mental status. PHYSICAL EXAMINATION: VITAL SIGNS: Upon arrival, height 182.9 cm, weight 81.7 kilograms, temperature 99.3, pulse 98, respiratory rate 30, blood pressure 184/114 and O2 saturations were initially 75% on 5 liters then 99% on a nonrebreather since he has been titrated down to 95% pulse oximetry on 5 liter nasal cannula. GENERAL: He is arousable, chronically ill-appearing gentleman. HEENT: Pupils equal, round, reactive to light. Sclerae are anicteric. Oropharynx is clear. Mucous membranes are moist. Poor dentition. NECK: Supple, no lymphadenopathy. CARDIOVASCULAR: At time of exam was regular rate and rhythm with occasional ectopy. LUNGS: Coarse breath sounds at the bases bilaterally. No wheezing, shallow inspiratory effort. ABDOMEN: Soft. Bowel sounds are present, nontender to palpation. EXTREMITIES: No cyanosis, clubbing. He has had some xerosis and lower extremity edema. NEUROLOGIC: Grossly nonfocal. LABORATORY DATA: CBC: White count 11.9, hemoglobin 15.1, platelets 186. Differential: 82% neutrophils, 8% lymphocytes, 8% monocytes. Sodium 145, potassium 4.7, chloride 110, CO2 is 20, BUN 25, creatinine 1.88, glucose is 113, calcium is 8.4, total bilirubin is 1.7, AST 35, ALT 38, alkaline phosphatase 77, troponin I of 1.81, total protein 6.7, albumin 3.1. IMAGING STUDIES: Chest x-ray performed upon arrival shows shallow inspiratory effort, otherwise negative acute. ASSESSMENT AND PLAN: The patient is a 73-year-old man here with dementia with behavior disturbance with dysphagia with a non-ST elevation myocardial infarction due to demand ischemia with acute hypoxemic respiratory failure. Clinical criteria consistent with sepsis upon arrival with SIRS criteria being fever, tachycardia and tachypnea with source likely being acute bronchitis. No aspiration pneumonitis. 1. We will give IV fluid hydration. He does have acute renal failure about his baseline, likely secondary to dehydration. 2. IV antibiotics. 3. He does have evidence of a type 2 NSTEMI, will treat with Lovenox q.12 hours. He is not able to take oral medications at this point. He is code status DNR. We will maximize medical management, though. 4. Continue Benadryl and Ativan as needed for agitation. Time spent on 04/09/2018 is 45 minutes. Vinny Lynch MD DR: MELIZA/rao JOB# [id number] [place]
[2018-04-10] MEDS ORDERED: DILAUDID IV STA (00:55)
--- NOTE | 2018-04-10 01:00 | NUR ---
family informed NUrse Diana attempted several times to contact family members of the pt. When she finally got hold of the correct number from [facility] , she was able to talk to the . Nurse told the that pt is in bad shape right now and if they could come over to see him. siad that she just had surgery two weeks ago and she probably cannot drive by herself. said that she will call her daughter to see if the latter could bring the former here.
[2018-04-10] MEDS ORDERED: LASIX ONE (01:22)
[2018-04-10] MEDS ORDERED: LASIX IV STA (01:31)
[2018-04-10 01:43] LABS: ABG PCO2 101.6 mmHg (35.0-45.0); ABG PH 6.997 (7.350-7.450); HCO3act 24.3 mmol/L (22.0-26.0); pO2 52.5 mmHg (75.0-100.0)
--- NOTE | 2018-04-10 01:45 | NUR ---
herrera herrera inserted on pt. Dated and timed. yellow clear urine output observed.
--- NOTE | 2018-04-10 02:00 | NUR ---
son called son called back after he was informed by his sister the state of their father. Nurse talked to him and informing him that at this time pt is now stable and sleeping. Oxygen sat is between 98-100 at 15 using non rebreather. Son asked if pt would last for few more days because he lives in [place]. Nurse told him that at this time, pt is stable but no one knows if he will go down again. Physician already mentioned that he is not putting more orders for him. Nurse encouraged the son to find time to come over.
--- NOTE | 2018-04-10 02:16 | NUR ---
RT CALLED TO FIORELLA CRANDALL FOR LOW SPO2 ON PATIENT, PT SPO2 READING 40-60 ON SPO2 MONITORS, 50% AT 15 L/M VENTURI MASK PLACED ON PT, SPO2 INCREASED TO 68%, PT THRASHING AROUND IN BED, MASK REMOVED AND 15 L/M NON REBREATHER PLACED ON PT, CALL PLACED TO DR CLIFTON, ORDERS GIVEN FOR ABG, ABG DRAWN AND TAKEN TO RT TO BE RUN, ROLLY EVP NURSE NOTIFIED OF ABG RESULTS, 0143 ABG RESULTS CALLED TO DR CLIFTON, NO NEW ORDERS GIVEN AT THIS TIME, REPORT CALLED TO FIORELLA CRANDALL AT THAT TIME.
[2018-04-10] MEDS ORDERED: TYLENOL RC STA (03:35)
[2018-04-10] MEDS: NS 1000ML 1,000 ML IV SCH ×2 (04:00→15:03)
[2018-04-10 04:20] VITALS: BP 115/90
[2018-04-10 06:00] LABS: CARBON DIOXIDE 22.5 mmol/L (20.0-32)
--- NOTE | 2018-04-10 06:53 | NUR ---
report report given to o/c shift
--- NOTE | 2018-04-10 07:00 | NUR ---
RECEIVED REPORT, ASSUMED CARE OF PT. FAMILY AT BEDSIDE.
[2018-04-10 08:28] VITALS: BP 130/61
[2018-04-10 09:45] LABS: ABG PCO2 45.4 mmHg (35.0-45.0); ABG PH 7.333 (7.350-7.450); BE(B) -2.5 mmol/L (-2.0-2.0); HCO3act 23.6 mmol/L (22.0-26.0); pO2 189.4 mmHg (75.0-100.0)
[2018-04-10] MEDS ORDERED: TRANDATE IV PRN (10:00)
[2018-04-10] MEDS: LOVENOX SQ SCH (10:38)
[2018-04-10] MEDS: DILAUDID IV PRN ×3 (10:44→21:33)
[2018-04-10 11:09] VITALS: BP 152/115
[2018-04-10] MEDS: ROCEPHIN 1,000 MG in NS 100ML 100 ML IV SCH (13:40)
[2018-04-10 13:42] VITALS: BP 135/78
[2018-04-10] MEDS ORDERED: TYLENOL RC ONE (13:44)
[2018-04-10] MEDS ORDERED: TYLENOL RC PRN ×2 (14:00→20:30)
--- NOTE | 2018-04-10 18:35 | NUR ---
REPORT GIVEN TO ONCOMING SHIFT
--- NOTE | 2018-04-10 18:47 | NUR ---
Report Received report joel Duran RN
--- NOTE | 2018-04-10 19:20 | NUR ---
Ryan Connell RN with [facility] here accepting patient to hospice. Orders received to discontinue all current medications with new orders to follow
--- NOTE | 2018-04-10 19:55 | NUR ---
GIP HOSPICE: SS CONSULTED TO VISIT WITH FAMILY REGARDING GIP SERVICES. SS SPOKE TO PT'S SON WHO STATED THAT THEY JUST WANTED TO MAKE PT COMFORTABLE AT THIS TIME SINCE HE IS HAVING SUCH A HARD TIME BREATHING. SS EDUCATED PT ON GIP HOSPICE VS H[place]. PT'S FAMILY WOULD LIKE TO DO GIP AT THIS TIME. SS LET PT'S KNOW [facility] IS A LOCAL AGENCIES THAT DOES GIP SERVICES AND PT'S FAMILY WAS OKAY WITH CALLING THEM AT THIS TIME. VERBAL CONSENT GIVEN TO PROVIDE [facility] WITH PT'S INFORMATION. JUAN A WITH [facility] CAME UP AND EVALUATED PT AND AFTER EVALUATION AND VISITING WITH DOCTOR DECIDED TO ADMIT PT TO [facility]. NO FURTHER SS NEEDS NOTED AT THIS TIME.
[2018-04-10] MEDS ORDERED: ATIVAN ONE (19:58)
[2018-04-10] MEDS ORDERED: MORPHINE SULFATE IV PRN (20:00)
[2018-04-10] MEDS: ATIVAN IV PRN (20:27)
[2018-04-10 20:28] VITALS: BP 165/97
[2018-04-10] MEDS: TRANSDERM-SCOP TD PRN (22:00)
[2018-04-11] MEDS: ATIVAN IV PRN ×2 (02:32→08:48)
[2018-04-11] MEDS: DILAUDID IV PRN ×2 (06:01→09:47)
--- NOTE | 2018-04-11 07:05 | NUR ---
Report Report given to Diane Low RN
[2018-04-11] MEDS: TRANSDERM-SCOP TD PRN (09:47)
--- NOTE | 2018-04-11 09:48 | NUR ---
SCOPOLAMINE PATCH FELL OFF AT THIS TIME. NEW PATCH PLACED BEHIND RIGHT EAR
--- NOTE | 2018-04-11 09:59 | NUR ---
assumed care Assumed care of patient after report received from Nunu DIAZ at shift change. Patient position changed, vital signs completed for shift. Obtunded, becomes agitated. Ativan and Dilaudid for comfort. Family arrived to the bedside about 0900. comfort care education given to family. Family encouraged to call with needs.
[2018-04-11 10:30] VITALS: BP 165/97
--- NOTE | 2018-04-11 10:41 | NUR ---
TOD 1030 Patient TOD 1030, Alex RN and Margaret RN, at the bedside with DR. Lynch. Patient care/bathing provided just prior to patient's passing. Family had stepped out of the room, were called back immediately. The presence of heart and breath sounds were auscultated to be absent by Alex RN and Margaret RN, with DR. Lynch. [facility] arrived, shortly after .
--- NOTE | 2018-04-11 18:16 | HPH ---
ADMIT DATE: 04/11/2018 ADMISSION HISTORY AND PHYSICAL AND DISCHARGE SUMMARY. CHIEF COMPLAINT: Declining functional status, hypoxemic respiratory failure, dysphagia. BRIEF SUMMARY: The patient was initially admitted on inpatient service on 04/08/2018. He had numerous medical problems, has rapid decline in general health. On 04/10/2018, at 1910, he was discharged and readmitted to general inpatient palliative care, [facility] with [facility]. He continued to receive multiple medications only by IV, was unable to take oral intake well. Overnight, he continued to decline. At 10:30 a.m. on 04/11/2018, he was without spontaneous respirations or heartbeat and family was present and time of was called: Please see history and physical dictated by me on 04/09/2018 for full details. PAST MEDICAL HISTORY: Per H and P dictated on 04/02/2018. PAST SURGICAL HISTORY: Per H and P dictated on 04/02/2018. ALLERGIES: Per H and P dictated on 04/02/2018. HOME MEDICATIONS: Per H and P dictated on 04/02/2018. SOCIAL HISTORY: Per H and P dictated on 04/02/2018. FAMILY HISTORY: Per H and P dictated on 04/02/2018. REVIEW OF SYSTEMS: Unable to obtain due to altered mental status. PHYSICAL EXAMINATION: VITAL SIGNS: Upon admission to a palliative care, height 182.9 cm, weight 82.6 kilograms, temperature 100.7, pulse 94, respiratory rate 28, blood pressure 165/97, O2 saturation 97% on 10 liter nonrebreather. GENERAL: He was minimally arousable, chronic ill-appearing gentleman. HEENT: His pupils were equal and reactive, but sluggish. Sclerae are anicteric. Oropharynx is clear. Mucous membranes are moist. NECK: Supple, no lymphadenopathy. CARDIOVASCULAR: At time of exam, was tachycardic, regular rhythm with occasional ectopy. LUNGS: Shallow inspiratory effort, no wheezing. ABDOMEN: Soft. Bowel sounds are present, nontender to palpation. EXTREMITIES: No cyanosis, clubbing or significant edema. NEUROLOGIC: Grossly nonfocal except he has some occasional myoclonic jerks. ASSESSMENT AND PLAN: The patient is a 73-year-old man here with non-ST elevation DC recently with acute hypoxemic respiratory failure with acute renal failure on chronic kidney disease stage 3, severe protein-calorie malnutrition, acute on chronic hypoxemic respiratory failure. 1. He is admitted to the inpatient palliative care. We will continue palliative measurements. 2. O2 protocol. 3. At 10:30 a.m. on 04/11/2018, he was without spontaneous respirations or heartbeat and time of was called. Principal cause of was cardiac arrest secondary to [id number] hypoxemic respiratory failure secondary to aspiration pneumonitis secondary to advanced dementia with dysphagia. Other conditions included a non-ST elevation DC. The family was present. Plans were discussed. They do understand and concur and present at time of . Vinny Lynch MD DR: MELIZA/rao JOB# [id number] [place]
--- NOTE | 2018-04-11 19:44 | DSH ---
DATE OF DISCHARGE: TIME: 7:10 p.m. DISPOSITION: Discharge is transfer over to general inpatient palliative care, [facility] with hospice. PRINCIPAL DIAGNOSES AT DISCHARGE: Includes aspiration pneumonia, severe protein-calorie malnutrition, dysphagia, acute on chronic hypoxemic respiratory failure, non-ST elevation myocardial infarction. BRIEF SUMMARY: The patient was initially admitted on 04/08/2018 from the [facility]. He has declined. The labs showed that he had a non-ST elevation IA. He had progressive hypoxia. He has signs of dysphagia, was unable to take oral intake well. He was started on IV antibiotics for the aspiration pneumonitis. His cardiac enzymes did improve. He was unable to take oral medications. He was treated with treatment dose Lovenox and IV labetalol. He did progressively decline. In discussion with the family, he is code status, DNR. Option was made to admit to inpatient hospice care. This occurred on 04/10/2018 at 1910 hours. Discharge plans were discussed with the family, they do understand and concur. Time spent on discharge is 25 minutes on 04/10/2018. Vinny Lynch MD DR: MELIZA/rao JOB# [id number] [place]
== END 2018-04-11 10:30 | disposition expired | DRG 871 ==
LOC: UNDOADMIN 21:00 → MS 21:00
PROVIDERS: ADMIT Internal Medicine; ATTEND Internal Medicine
DX: A41.9 Sepsis, unspecified organism (principal); J69.0 Pneumonitis due to inhalation of food and vomit; E43 Unspecified severe protein-calorie malnutrition; J96.21 Acute and chronic respiratory failure with hypoxia; I21.A1 Myocardial infarction type 2; F03.91 Unspecified dementia, unspecified severity, with behavioral disturbance; N17.9 Acute kidney failure, unspecified; E86.0 Dehydration; I46.9 Cardiac arrest, cause unspecified; J20.9 Acute bronchitis, unspecified; N18.3 Chronic kidney disease, stage 3 (moderate); R13.10 Dysphagia, unspecified; Z51.5 Encounter for palliative care; Z66 Do not resuscitate; Z68.24 Body mass index [BMI] 24.0-24.9, adult
CPT/HCPCS: 36415; 36600; 71045; 80048; 80053; 82803; 84484; 85025; J0696; J1200; J1650; J1940; J2060; J2270; J7030; J7050; J3490